=== PATIENT | female | born 1960 | race Caucasian/White ===

== ENCOUNTER 2017-07-10 18:25 | Emergency (ER) | payer BC ==
[~2017-07-10] VITALS: Ht 162.6 cm; Wt 80.5 kg
[~2017-07-10 18:25] MED LIST: ATORVASTATIN CA20 MG PO; LEVOTHYROXINE75 MCG PO; LISINOPRIL10 MG PO; METFORMIN HCL1000 MG PO
[2017-07-10] MEDS ORDERED: LEVOTHYROXINE100 MCG PO (19:47)
[2017-07-10] MEDS ORDERED: NAPROXEN375 MG PO (19:47)
[2017-07-10] MEDS ORDERED: METFORMIN HCL850 MG PO (19:47)
[2017-07-10] MEDS ORDERED: LISINOPRIL20 MG PO (19:48)
[2017-07-10] MEDS ORDERED: ZOFRAN ODT4 MG PO (23:44)
[2017-07-10] MEDS ORDERED: MACROBID 100 M100 MG PO (23:44)
--- NOTE | 2017-07-12 08:02 | EKG ---
[facility] [address] [facility] [place] [address] Signed Normal sinus rhythm Septal infarct , age undetermined Abnormal ECG No previous ECGs available Confirmed by PREETHI BARRAGAN MD ([id number]) on 07/12/2017 8:02:23 AM Electronically Signed By: PREETHI BARRAGAN MD 07/12/17 0802 PATIENT NAME: VIRGIL ADAMS Electrocardiogram DATE OF : 56 PHYSICIAN: PREETHI BARRAGAN MD REPORT #: [id number] REPORT IS CONFIDENTIAL AND NOT TO BE RELEASED WITHOUT AUTHORIZATION
== END 2017-07-11 00:06 | disposition home or self-care (01) ==
LOC: ED 18:25
DX: N39.0 Urinary tract infection, site not specified (principal); R53.1 Weakness; E03.9 Hypothyroidism, unspecified; E78.00 Pure hypercholesterolemia, unspecified; E11.9 Type 2 diabetes mellitus without complications; I10 Essential (primary) hypertension; F32.9 Major depressive disorder, single episode, unspecified; J45.909 Unspecified asthma, uncomplicated; Z87.891 Personal history of nicotine dependence; Z90.710 Acquired absence of both cervix and uterus; Z90.49 Acquired absence of other specified parts of digestive tract; Z79.84 Long term (current) use of oral hypoglycemic drugs; Z79.899 Other long term (current) drug therapy
CPT/HCPCS: 36415; 80053; 81001; 83690; 84484; 85025; 87088; 93005; 93010; 96360; 99284; J7030

== ENCOUNTER 2017-10-23 07:05 | Day surgery (SDC) | payer BC ==
[~2017-10-23] VITALS: Ht 162.6 cm; Wt 81.4 kg
[~2017-10-23 07:05] MED LIST changes: +CYMBALTA30 MG PO; +DOXYCYCLINE HY100 MG PO; +LEVOTHYROXINE100 MCG PO; +LISINOPRIL20 MG PO; +MACROBID 100 M100 MG PO; +METFORMIN HCL850 MG PO; +NAPROXEN375 MG PO; +ZOFRAN ODT4 MG PO
--- NOTE | 2017-10-23 09:27 | NUR ---
0845 AND 0925 COMFORTABLE IV PATENT.UPDATE GIVEN.
--- NOTE | 2017-10-23 12:05 | NUR ---
10/23/17 1205 Harini Weathers PT ARRIVED TO PACU. NO RESPONDING AT THIS TIME. OPA IN PLACE.
--- NOTE | 2017-10-23 13:23 | NUR ---
LE 1235: PT ARRIVES TO DS ROOM 3 VIA STRETCHER ALERT AND ORIENTED. PT DENIES ANY PAIN AT THIS TIME. PT PROVIDED WARM BLANKET AND WATER. FAMILY IN ROOM ON ARRIVAL. LE 1245: MED SCRIPT HARD COPY GIVEN TO PT . APPLE JUICE AND CRACKERS GIVEN PER PT REQUEST. BEDSIDE COMMODE PROVIDED, PT VOIDS 225 MLS RED URINE. DAUGHTER IN ROOM AT THIS TIME. CALL LIGHT WITHIN REACH. BEDSIDE COMMODE PROVIDED, PT STATES SHE FEELS "MORE COMFORTABLE SITTING ON COMMODE IN UPRIGHT POSITION." PT HAS NO FURTHER REQUESTS AT THIS TIME, CALL LIGHT WITHIN REACH, DAUGHTER IN PT ROOM.
--- NOTE | 2017-10-23 15:04 | NUR ---
CALLED DR. WOOD AND SPOKE TO VALARIE REGARDING PT'S PAIN AND SPASMS. VALARIE STATED SHE WOULD TALK TO DR. WOOD AND REPORT BACK TO DS UNIT. 1509: CALLED BACK, SEE NEW ORDERS.
--- NOTE | 2017-10-23 15:33 | NUR ---
LE 1500: PLACED WARM BLANKET ON PT'S RIGHT SIDE TO HELP WITH SPASM PAIN. PT PAINFUL, WITH TEARS. RICHARD PROVIDED. 1330: OFFERED PT SUPPOSITORY AND PAIN MEDICATIONS FROM NEW TELEPHONE ORDER. PT STATES "I THINK THE WARM BLANKET IS HELPING" AND DEFERS MEDICATION AT THIS TIME. ADVISED TO LET RN KNOW IF OR WHEN PT WOULD LIKE THE MEDICATIONS THEY ARE AVAILABLE. FAMILY IN ROOM WITH PT. CALL LIGHT WITHIN REACH.
--- NOTE | 2017-10-23 16:43 | NUR ---
PT EATING SANDWHICH AND SOUP, FAMILY IN ROOM. VS TO BE DONE AFTER MEAL. WARM BLANKET ON RIGHT SIDE. CALL LIGHT WITHIN REACH.
--- NOTE | 2017-10-23 17:15 | NUR ---
PT TOLERATED SANDWICH AND SOUP WELL, NO COMPLAINTS OF N/V. PT STATES SHE FEELS READY TO GO HOME NOW THAT HER PAIN/SPASMS ARE "MUCH BETTER." PT FAMILY IN [place] EATING DINNER, DC INSTRUCTIONS TO BE READ WHEN THEY ARE PRESENT IN ROOM. CALL LIGHT WITHIN REACH. WARM BLANKET ON PT RIGHT SIDE.
--- NOTE | 2017-10-23 17:46 | NUR ---
DC INSTRUCTIONS GIVEN IN THE PRESENCE OF PATIENT AND FAMILY. INSTRUCTIONS UNDERSTOOD AND ALL QUESTIONS ANSWERED. PT AMBULATES WELL TO BATHROOM BEFORE DC VIA WHEELCHAIR HOME WITH FAMILY.
--- NOTE | 2017-10-24 10:43 | OR ---
[facility] [address] [place], [place] [address] Signed DATE OF OPERATION: 10/23/2017 SURGEON: Christian Wood MD PREOPERATIVE DIAGNOSES: 1. Right renal calculus. 2. Intermittent right-sided flank pain. POSTOPERATIVE DIAGNOSES: 1. Right renal calculus. 2. Intermittent right-sided flank pain. NAMES OF PROCEDURES: 1. Diagnostic cystoscopy with right retrograde pyelogram. 2. Right flexible nephroureteroscopy with laser lithotripsy and basket extraction of stones. 3. Insertion of right indwelling ureteral stent. ANESTHESIA: General. ESTIMATED BLOOD LOSS: Minimal. COMPLICATIONS: None. SPECIMENS: Right renal calculi, sent to the lab for stone analysis. DRAINS: A 6 x 24 cm contour double-J ureteral stent inserted in the right ureter. INDICATIONS FOR PROCEDURE: Ms. Bryan is a very pleasant 57-year-old female who presented to my clinic upon referral from Don Bustos for intermittent right-sided flank pain. She had undergone a CT scan, which revealed no evidence of any ureteral calculi. However, it did reveal approximately 9 mm right renal calculus. After a discussion of the other potential causes of her pain, the patient has elected to undergo elective right renal stone extraction and hopes that this would improve her intermittent right-sided flank pain. Electronically Signed By: CHRISTIAN WOOD MD 10/24/17 1043 PATIENT NAME: VIRGIL BRYNA OPERATIVE REPORT DATE OF : 56 PHYSICIAN: CHRISTIAN WOOD MD REPORT #: [id number] REPORT IS CONFIDENTIAL AND NOT TO BE RELEASED WITHOUT AUTHORIZATION [facility] [address] [place], [place] [address] Signed OPERATIVE FINDINGS: 1. On cystoscopy, there was no evidence of any suspicious masses, lesions, or stones. Bilateral ureteral orifices are in their normal anatomic location. 2. Right retrograde pyelogram revealed adequate placement of the ureteral access sheath twice. The calices appeared normal without any evidence of blunting or dilation. Overall there was no evidence of any hydronephrosis or any indication of obstruction on the right side. 3. Right-sided nephroscopy revealed the presence of two large stones in the lower pole of the right kidney. Both stones were successfully extracted from the kidney via the ureteral scope and placed in a specimen cup to be sent to pathology for stone analysis. 4. A 6 x 24 cm contour double-J ureteral stent was inserted into the right ureter without difficulty. DESCRIPTION OF PROCEDURE: After informed consent was obtained, the patient was taken back to the operating room. She was transferred from the [facility] to the operating room table, where general anesthesia was induced. She was placed in dorsal lithotomy position and her genitalia prepped and draped in a sterile fashion. Using a 30-degree lens on a 22-Setswana introducer, rigid cystoscope was inserted through the urethra into her bladder under direct visualization. Panendoscopic views of the bladder were then obtained. Please see the above findings. Of note, prior to insertion of the cystoscope per urethra, appeared to be diminutive in nature. Her urethra was therefore dilated using straight sounds from 18-Setswana to 24-Setswana without difficulty. Once the cystoscope was in place, I inserted a Sensor wire into the right ureteral orifice and up into the right collecting system. Fluoroscopy confirmed adequate placement of the wire. Over the wire, a 13/15 ureteral access sheath was passed into the patient's right ureter under fluoroscopic guidance. Right retrograde pyelogram was performed, which revealed the aforementioned findings as well as confirmed placement of the sheath. The obturator was then removed leaving the sheath in place. A flexible ureteral scope was inserted into the patient's ureter and kidney via the sheath. Right flexible nephroureteroscopy was then performed. Please see above findings. All of the stone burden was located in the lower pole of the right kidney. I extracted each stone present there and brought it up to the mid pole where I then fragmented the stone using a holmium laser at 0.8 hertz and one joule setting. The stone is fragmented easily and then were extracted successfully using a Zero tip basket without complication. Towards the end of the case, there began to be a significant amount of bleeding in the right renal pelvis that was limiting my visualization. I am satisfied that I obtained at least 90% of the stone burden successfully, which the stone fragments will be sent to pathology for evaluation. Once I was satisfied that all the stones had been extracted, I inserted a Sensor wire through the ureteral access sheath and removed the ureteral access sheath fully intact. Over the wire, I passed a 6 x 24 cm contour double-J ureteral stent under direct Electronically Signed By: CHRISTIAN WOOD MD 10/24/17 1043 PATIENT NAME: VIRGIL BRYAN OPERATIVE REPORT DATE OF : 56 PHYSICIAN: CHRISTIAN WOOD MD REPORT #: [id number] REPORT IS CONFIDENTIAL AND NOT TO BE RELEASED WITHOUT AUTHORIZATION [address] [address] Signed visualization via the cystoscope. Once I pulled the wire, an adequate proximal coil was seen in the right renal pelvis along with an adequate distal coil within the bladder on cystoscopy. The procedure was then terminated. The patient tolerated the procedure out well without any complication. She will now be transferred to the postanesthesia care unit in stable condition. DISPOSITION: I discussed the details of today's procedure with the patient's family and answered all of her questions. She will be sent home later today with Percocet 5/325, dispensed #30 as needed for pain along with Bactrim for a total of seven days. She will be scheduled to return to clinic this October 27 to undergo cystoscopy with right ureteral stent extraction. Her stones will be sent for stone analysis today. MD AYANNA Brown/ABELL /[id number] Electronically Signed By: CHRISTIAN WOOD MD 10/24/17 1043 PATIENT NAME: VIRGIL BRYAN OPERATIVE REPORT DATE OF : 56 PHYSICIAN: CHRISTIAN WOOD MD REPORT #: [id number] REPORT IS CONFIDENTIAL AND NOT TO BE RELEASED WITHOUT AUTHORIZATION
== END 2017-10-23 17:40 | disposition home or self-care (01) ==
LOC: DS 07:05 → OPS 07:05 → DS 08:30 → OPS 08:30
PROVIDERS: Urology
PROC: 0TC38ZZ Extirpation of Matter from Right Kidney Pelvis, Via Natural or Artificial Opening Endoscopic (ICD-10-PCS; principal; 2017-10-23 08:30)
PROC: 0T768DZ Dilation of Right Ureter with Intraluminal Device, Via Natural or Artificial Opening Endoscopic (ICD-10-PCS; 2017-10-23 08:30)
DX: N20.0 Calculus of kidney (principal); E03.9 Hypothyroidism, unspecified; F32.9 Major depressive disorder, single episode, unspecified; J45.909 Unspecified asthma, uncomplicated; E11.9 Type 2 diabetes mellitus without complications; M19.90 Unspecified osteoarthritis, unspecified site; Z90.710 Acquired absence of both cervix and uterus; Z90.49 Acquired absence of other specified parts of digestive tract; Z79.84 Long term (current) use of oral hypoglycemic drugs; Z79.899 Other long term (current) drug therapy; Z87.891 Personal history of nicotine dependence
CPT/HCPCS: 00910; 74420; 82365; C2617; J0696; J1170; J2250; J2704; J3010; J7120; Q9967

== ENCOUNTER 2024-11-07 14:18 | Emergency (ER) | payer MEDICARE, OTHER ==
[~2024-11-07] VITALS: Ht 162.6 cm; Wt 99.1 kg
[2024-11-07] MEDS ORDERED: METOPROLOL TARTRATE 5 MG/5 ML VIAL IV ONE (15:30)
[2024-11-07 15:36] LABS: BASOPHILS 0.5 % (0-2); EOSINOPHILS 3.3 % (0-6); HEMATOCRIT 36.4 % (35.0-50.0); HEMOGLOBIN 12.3 g/dL (12.0-18.0); LYMPHOCYTES 18.1 % (24-44); MCHC 33.8 g/dl (30-36); MCV 82.8 fl (81-99); MONOCYTES 10.6 % (0-12); NEUTROPHILS 67.5 % (39-80); PLATELET COUNT 355 K/uL (140-440); RDW 15.1 (10.5-15.0)
[2024-11-07 16:04] LABS: ALBUMIN/GLOBULIN RATIO 0.56 (1.1-2.4); ANION GAP 14.5 (7-21); BILIRUBIN, TOTAL 0.5 ng/dL (0.2-1.0); BUN/CREATININE RATIO 16.3 (6.0-28.6); CALCIUM 9.9 mg/dL (8.5-10.1); CREATININE, SERUM 0.92 mg/dL (0.55-1.02); MAGNESIUM 1.8 mg/dL (1.8-2.4); POTASSIUM 3.5 mmol/L (3.5-5.1); PROTEIN, TOTAL 8.4 g/dL (6.4-8.2); TSH, 3RD GENERATION 5.484 uIU/mL (0.358-3.740)
[2024-11-07 16:06] LABS: AMPHETAMINES, URINE NEGATIVE (NEGATIVE); BARBITURATES, URINE NEGATIVE (NEGATIVE); BENZODIAZEPINE, URINE NEGATIVE (NEGATIVE); BUPRENORPHINE, URINE NEGATIVE (NEGATIVE); CANNABINOID, URINE NEGATIVE (NEGATIVE); COCAINE, URINE NEGATIVE (NEGATIVE); ECSTASY, URINE NEGATIVE (NEGATIVE); FENTANYL, URINE NEGATIVE (NEGATIVE); METHADONE, URINE NEGATIVE (NEGATIVE); OPIATES, URINE NEGATIVE (NEGATIVE); OXYCODONE, URINE NEGATIVE (NEGATIVE); PHENCYCLIDINE, URINE NEGATIVE (NEGATIVE)
[2024-11-07] MEDS ORDERED: ASPIRIN 81 MG CHEW PO ONE (18:15)
[2024-11-07] MEDS ORDERED: NITROGLYCERIN PACKET TOP ONE (18:15)
[2024-11-07 18:46] VITALS: BP 143/84
== END 2024-11-07 18:40 | disposition short-term general hospital (02) ==
LOC: ED 14:18
PROVIDERS: Internal Medicine
DX: I21.4 Non-ST elevation (NSTEMI) myocardial infarction (principal); I48.91 Unspecified atrial fibrillation; E11.9 Type 2 diabetes mellitus without complications; I10 Essential (primary) hypertension; E78.5 Hyperlipidemia, unspecified; E03.9 Hypothyroidism, unspecified; E78.00 Pure hypercholesterolemia, unspecified; J45.909 Unspecified asthma, uncomplicated; Z87.891 Personal history of nicotine dependence; Z79.890 Hormone replacement therapy; Z79.4 Long term (current) use of insulin; Z79.84 Long term (current) use of oral hypoglycemic drugs; Z79.899 Other long term (current) drug therapy
CPT/HCPCS: 36415; 71045; 80053; 80307; 83735; 83880; 84439; 84443; 84484; 85025; 93005; 93010; 96374; 99285-25; A9270

== ENCOUNTER 2025-05-17 16:56 | Emergency (ER) | payer MEDICARE, OTHER ==
[~2025-05-17] VITALS: Ht 162.6 cm; Wt 87.3 kg
[~2025-05-17 16:56] MED LIST changes: -ATORVASTATIN CA20 MG PO; +ATORVASTATIN CA40 MG PO; +GLIPIZIDE ER10 MG PO; +LEVOTHYROXINE137 MCG PO; -LISINOPRIL20 MG PO; +LISINOPRIL30 MG PO; +PIOGLITAZONE HC45 MG PO; +SEMGLEE (Y100 UNIT/2 SUB-Q; +ZYRTEC10 MG PO
[2025-05-17] MEDS ORDERED: NITROFURANTOIN100 M1 PO (17:20)
[2025-05-17] MEDS ORDERED: GLIPIZIDE5 MG PO (17:21)
[2025-05-17] MEDS ORDERED: MOUNJARO5 MG/0.5 M SQ (17:21)
[2025-05-17] MEDS ORDERED: CLOPIDOGREL75 MG (18:58)
[2025-05-17 19:03] LABS: KETONE, URINE TRACE (Negative); LEUK ESTERASE, URINE MODERATE (negative); NITRITE, URINE POSITIVE (negative)
[2025-05-17 19:16] LABS: BLOOD/HGB, URINE MODERATE (Negative)
[2025-05-17 19:26] LABS: BACTERIA, URINE 1+ /hpf (negative); CASTS, URINE HYALINE 1+ \\lpf; CRYSTALS, URINE NONE SEEN (0-1+); EPITHELIAL CELLS, URINE SQUAMOUS 1+ /lpf (0-1+)
[2025-05-17 19:29] LABS: REFLEX CULTURE, URINE Yes (No)
[2025-05-17 19:30] LABS: BASOPHILS 0.5 % (0.1-1.2); EOSINOPHILS 1.7 % (0.7-5.8); LYMPHOCYTES 21.3 % (19.3-51.7); MCH 28.0 PG (25.6-32.2); MCHC 32.2 g/dL (32.2-35.5); MCV 86.8 fL (79.4-94.8); MONOCYTES 8.8 % (4.7-12.5); NEUTROPHILS 67.4 % (34.0-71.1); RBC 4.47 M/uL (3.93-5.22)
[2025-05-17 19:40] LABS: ALT (SGPT) 21.0 U/L (14-59); AST (SGOT) 12.0 U/L (15-37); GLOMERULAR FILTRATION RATE,EST 37.0 mL/min (>60); PROTEIN, TOTAL 9.2 g/dL (6.4-8.2); UREA NITROGEN 53.0 mg/dL (7-18)
[2025-05-17] MEDS ORDERED: HYDROCODON-ACE1 EA10 PO (19:53)
[2025-05-17] MEDS ORDERED: CEPHALEXIN500 M1 PO (19:53)
[2025-05-17] MEDS ORDERED: HYDROCODONE BIT/ACETAMINOPHEN 5/325 MG 1 TAB HOME.PACK PO PRN (20:00)
[2025-05-17] MEDS ORDERED: CEPHALEXIN MONOHYDRATE 500 MG HOME.PACK PO ONE (20:00)
[2025-05-17 20:13] VITALS: BP 142/82
== END 2025-05-17 20:15 | disposition home or self-care (01) ==
LOC: ED 16:56
PROVIDERS: Emergency Medicine
DX: N39.0 Urinary tract infection, site not specified (principal); I10 Essential (primary) hypertension; E11.9 Type 2 diabetes mellitus without complications; E03.9 Hypothyroidism, unspecified; J45.909 Unspecified asthma, uncomplicated; Z87.891 Personal history of nicotine dependence; Z79.84 Long term (current) use of oral hypoglycemic drugs; Z79.4 Long term (current) use of insulin; Z79.890 Hormone replacement therapy; Z79.899 Other long term (current) drug therapy
CPT/HCPCS: 36415; 80053; 81001; 85025; 87088; 99283; A9270

== ENCOUNTER 2025-06-01 19:54 | Emergency (ER) | payer MEDICARE, OTHER ==
[~2025-06-01] VITALS: Ht 162.6 cm; Wt 86.1 kg
[~2025-06-01 19:54] MED LIST changes: +CEPHALEXIN500 M1 PO; +CLOPIDOGREL75 MG; +GLIPIZIDE5 MG PO; +HYDROCODON-ACE1 EA10 PO; +MOUNJARO5 MG/0.5 M SQ; +NITROFURANTOIN100 M1 PO
--- OUTSIDE RECORDS SUMMARY | 2025-06-01 19:58 | XMS ---
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 Jaki has no Care Guidelines for this patient. Chen VISIT COUNT (12 MO.) 3 [facility] TOTAL 3 NOTE: Visits indicate total known visits. ED/C VISIT TRACKING (12 MO.) 06/01/2025 19:54 [facility] [place] TYPE: Emergency COMPLAINT: - URINE ISSUE 05/17/2025 16:57 [facility] [place] TYPE: Emergency COMPLAINT: - PAINFUL URINATION DIAGNOSES: - Dysuria - Essential (primary) hypertension - Hormone replacement therapy - Hypothyroidism, unspecified - intermediate teacher (current) use of insulin - intermediate teacher (current) use of oral hypoglycemic drugs - Other long lines operator (current) drug therapy - Personal history of nicotine dependence - Type 2 diabetes mellitus without complications - Unspecified asthma, uncomplicated - Urinary tract infection, site not specified 11/07/2024 14:19 [facility] [place] TYPE: Emergency COMPLAINT: - WEAKNESS DIAGNOSES: - Essential (primary) hypertension - Hormone replacement therapy - Hyperlipidemia, unspecified - Hypothyroidism, unspecified - intermediate teacher (current) use of insulin - [facility] (current) use of oral hypoglycemic drugs - Non-ST elevation (NSTEMI) myocardial infarction - Other jail (current) drug therapy - Personal history of nicotine dependence - Pure hypercholesterolemia, unspecified - Type 2 diabetes mellitus without complications - Unspecified asthma, uncomplicated - Unspecified atrial fibrillation - Weakness INPATIENT VISIT TRACKING (12 MO.) [facility] DIAGNOSES: - Acute respiratory failure with hypoxia - Acute systolic (congestive) heart failure - Atherosclerotic heart disease of [place] coronary artery without angina pectoris - intermediate teacher (current) use of insulin - Myocardial infarction type 2 - Nonrheumatic mitral (valve) insufficiency - Other malaise - Paroxysmal atrial fibrillation - Type 2 diabetes mellitus without complications - Unspecified atrial fibrillation [email or web address]
[2025-06-01] MEDS ORDERED: SODIUM CHLORIDE 0.9% 1,000 ML IV ONE (20:15)
[2025-06-01] MEDS ORDERED: KETOROLAC TROMETHAMINE 15 MG/ML VIAL IV ONE (20:15)
[2025-06-01] MEDS ORDERED: HYDROmorphone HCL 1 MG/ML SYR IV ONE (20:15)
[2025-06-01 20:29] LABS: BASOPHILS 0.5 % (0.1-1.2); EOSINOPHILS 2.6 % (0.7-5.8); LYMPHOCYTES 23.3 % (19.3-51.7); MCH 28.1 PG (25.6-32.2); MCHC 33.2 g/dL (32.2-35.5); MCV 84.9 fL (79.4-94.8); MONOCYTES 11.2 % (4.7-12.5); NEUTROPHILS 62.1 % (34.0-71.1); RBC 4.30 M/uL (3.93-5.22)
[2025-06-01 20:33] LABS: BACTERIA, URINE 2+ /hpf (negative); CASTS, URINE NONE SEEN \\lpf; CRYSTALS, URINE NONE SEEN (0-1+); EPITHELIAL CELLS, URINE SQUAMOUS 1+ /lpf (0-1+); REFLEX CULTURE, URINE Yes (No)
[2025-06-01 20:45] LABS: ALT (SGPT) 17.0 U/L (14-59); AST (SGOT) 9.0 U/L (15-37); GLOMERULAR FILTRATION RATE,EST 40.0 mL/min (>60); PROTEIN, TOTAL 8.6 g/dL (6.4-8.2); UREA NITROGEN 40.0 mg/dL (7-18)
[2025-06-01] MEDS ORDERED: LIDOCAINE 2% VISCOUS 6 ML SYR TOP ONE (22:30)
[2025-06-01] MEDS ORDERED: ONDANSETRON ODT8 MG PO (22:33)
[2025-06-01] MEDS ORDERED: LINEZOLID600 MG PO ×2 (22:33)
[2025-06-01] MEDS ORDERED: PERCOCET 5-3251 EACH PO (22:33)
[2025-06-01] MEDS ORDERED: HYDROmorphone HCL 1 MG/ML SYR IV PRN (22:45)
[2025-06-01] MEDS ORDERED: LORazepam 2 MG/ML VIAL IV ONE (22:45)
[2025-06-01] MEDS ORDERED: LINEZOLID 600 MG TAB PO ONE (22:45)
[2025-06-01] MEDS ORDERED: ONDANSETRON 4 MG HOME.PACK SL ONE (22:45)
[2025-06-01] MEDS ORDERED: OXYCODONE/ACETAMINOPHEN 1 TAB HOME.PACK PO ONE (22:45)
[2025-06-01] MEDS ORDERED: LACTATED RINGER'S 1,000 ML IV ONE (23:45)
[2025-06-01] MEDS ORDERED: SODIUM CHLORIDE 0.9% 1,000 ML IV PRN (23:45)
[2025-06-01 23:57] LABS: BASOPHILS 0.5 % (0.1-1.2); EOSINOPHILS 2.1 % (0.7-5.8); LYMPHOCYTES 20.2 % (19.3-51.7); MCH 28.5 PG (25.6-32.2); MCHC 33.1 g/dL (32.2-35.5); MCV 85.9 fL (79.4-94.8); MONOCYTES 9.7 % (4.7-12.5); NEUTROPHILS 67.0 % (34.0-71.1); RBC 3.76 M/uL (3.93-5.22)
[2025-06-02] MEDS ORDERED: TRANEXAMIC ACID IN NACL,ISO-OS 1,000 MG/100 ML PIGGYBACK IV ONE (00:15)
[2025-06-02 02:33] VITALS: BP 106/49
[2025-06-02] MEDS ORDERED: ELIQUIS5 MG PO (15:09)
[2025-06-02] MEDS ORDERED: LINEZOLID600 MG PO (16:28)
--- NOTE | 2025-06-02 23:22 | EKG ---
[facility] [address] [place] [address] Signed Atrial fibrillation Low voltage QRS T wave abnormality, consider inferior ischemia Abnormal ECG When compared with ECG of 07-NOV-2024 14:35, Vent. rate has decreased BY [address] no longer depressed in Inferior leads Nonspecific T wave abnormality has replaced inverted T waves in Anterior leads Confirmed by Radha Lee MD () on 06/02/2025 11:22:16 PM Electronically Signed By: RADHA LEE MD 06/02/25 2322 PATIENT NAME: VIRGIL ADAMS Electrocardiogram DATE OF : 56 PHYSICIAN: RADHA LEE MD REPORT #: [id number] REPORT IS CONFIDENTIAL AND NOT TO BE RELEASED WITHOUT AUTHORIZATION
== END 2025-06-02 02:36 | disposition home or self-care (01) ==
LOC: ED 19:54
PROVIDERS: Family Medicine
DX: N30.91 Cystitis, unspecified with hematuria (principal); N20.0 Calculus of kidney; E03.9 Hypothyroidism, unspecified; E78.00 Pure hypercholesterolemia, unspecified; E11.9 Type 2 diabetes mellitus without complications; I10 Essential (primary) hypertension; J45.909 Unspecified asthma, uncomplicated; I25.2 Old myocardial infarction; Z87.891 Personal history of nicotine dependence; Z79.84 Long term (current) use of oral hypoglycemic drugs; Z79.02 Long term (current) use of antithrombotics/antiplatelets; Z79.4 Long term (current) use of insulin; Z79.890 Hormone replacement therapy; Z79.899 Other long term (current) drug therapy
CPT/HCPCS: 36415; 51702; 74178; 80053; 81001; 82010; 82803; 85025; 87088; 93005; 93010; 96374; 96375; 96376; 99284-25; A4311; A9270; J0696; J1171; J1885; J2060; J2405; J7030; Q9967

== ENCOUNTER 2025-06-02 14:11 | Emergency (ER) | payer MEDICARE, OTHER ==
[~2025-06-02] VITALS: Ht 162.6 cm; Wt 89.5 kg
[~2025-06-02 14:11] MED LIST changes: +LINEZOLID600 MG PO; +ONDANSETRON ODT8 MG PO; +PERCOCET 5-3251 EACH PO
--- OUTSIDE RECORDS SUMMARY | 2025-06-02 14:18 | XMS ---
PreManage Notification: VIRGIL ADAMS Security Scientific Director Events No recent Security Events currently on file CRITERIA MET - [facility] - 2 Visits in 30 Days CARE PROVIDERS There are no care providers on record at this time. Jaki has no Care Guidelines for this patient. [facility] MO[facility] NOTE: Visits indicate total known visits. ED/C VISIT TRACKING (12 MO.) 06/02/2025 14:12 [facility] [place] TYPE: Emergency COMPLAINT: - UNCONTROLLABLE SHAKING 06/01/2025 19:54 [facility] [place] TYPE: Emergency COMPLAINT: - URINE ISSUE 05/17/2025 16:57 [facility] [place] TYPE: Emergency COMPLAINT: - PAINFUL URINATION DIAGNOSES: - Dysuria - Essential (primary) hypertension - Hormone replacement therapy - Hypothyroidism, unspecified - division leader (current) use of insulin - division leader (current) use of oral hypoglycemic drugs - Other penitentiary (current) drug therapy - Personal history of nicotine dependence - Type 2 diabetes mellitus without complications - Unspecified asthma, uncomplicated - Urinary tract infection, site not specified 11/07/2024 14:19 [facility] [place] TYPE: Emergency COMPLAINT: - WEAKNESS DIAGNOSES: - Essential (primary) hypertension - Hormone replacement therapy - Hyperlipidemia, unspecified - Hypothyroidism, unspecified - division leader (current) use of insulin - skilled nursing (current) use of oral hypoglycemic drugs - Non-ST elevation (NSTEMI) myocardial infarction - Other penitentiary (current) drug therapy - Personal history of nicotine dependence - Pure hypercholesterolemia, unspecified - Type 2 diabetes mellitus without complications - Unspecified asthma, uncomplicated - Unspecified atrial fibrillation - Weakness INPATIENT VISIT TRACKING (12 MO.) 11/07/2024 [facility] DIAGNOSES: - Acute respiratory failure with hypoxia - Acute systolic (congestive) heart failure - Atherosclerotic heart disease of [place] coronary artery without angina pectoris - skilled nursing (current) use of insulin - Myocardial infarction type 2 - Nonrheumatic mitral (valve) insufficiency - Other malaise - Paroxysmal atrial fibrillation - Type 2 diabetes mellitus without complications - Unspecified atrial fibrillation [email or web address]
[2025-06-02] MEDS ORDERED: MORPHINE SULFATE 4 MG/ML VIAL IV PRN (14:45)
[2025-06-02] MEDS ORDERED: ELIQUIS5 MG PO (15:09)
[2025-06-02] MEDS ORDERED: PHENAZOPYRIDINE HCL 100 MG TAB PO ONE (15:15)
[2025-06-02] MEDS ORDERED: HYDROmorphone HCL 1 MG/ML SYR IV ONE (15:15)
[2025-06-02] MEDS ORDERED: LINEZOLID600 MG PO (16:28)
[2025-06-02] MEDS ORDERED: LINEZOLID 600 MG TAB PO ONE (16:38)
[2025-06-02 17:40] VITALS: BP 132/67
== END 2025-06-02 17:49 | disposition home or self-care (01) ==
LOC: ED 14:11
DX: N32.89 Other specified disorders of bladder (principal); N39.0 Urinary tract infection, site not specified; E11.9 Type 2 diabetes mellitus without complications; I10 Essential (primary) hypertension; E78.5 Hyperlipidemia, unspecified; I48.91 Unspecified atrial fibrillation; J45.909 Unspecified asthma, uncomplicated; I25.2 Old myocardial infarction; Z87.891 Personal history of nicotine dependence; Z79.4 Long term (current) use of insulin; Z79.84 Long term (current) use of oral hypoglycemic drugs; Z79.01 Long term (current) use of anticoagulants; Z79.890 Hormone replacement therapy; Z79.899 Other long term (current) drug therapy
CPT/HCPCS: 51700; 51798; 96374; 96375; 99284-25; J1171; J2270; J2405

== ENCOUNTER 2025-06-04 05:33 | Emergency (ER) | payer MEDICARE, OTHER ==
[~2025-06-04] VITALS: Ht 162.6 cm; Wt 88.0 kg
[~2025-06-04 05:33] MED LIST changes: +ELIQUIS5 MG PO
--- OUTSIDE RECORDS SUMMARY | 2025-06-04 05:36 | XMS ---
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 Jaki has no Care Guidelines for this patient. Chen VISIT COUNT (12 MO.) [address] [facility] [address] [facility] TOTAL 5 NOTE: Visits indicate total known visits. ED/C VISIT TRACKING (12 MO.) 06/04/2025 05:[address] [facility] [address] [facility] [place] TYPE: Emergency COMPLAINT: - CATH PROBLEM 06/02/2025 14:12 [facility] [place] TYPE: Emergency COMPLAINT: - UNCONTROLLABLE SHAKING DIAGNOSES: - Dysuria - Essential (primary) hypertension - Hormone replacement therapy - Hyperlipidemia, unspecified - terminologist (current) use of anticoagulants - terminologist (current) use of insulin - terminologist (current) use of oral hypoglycemic drugs - Old myocardial infarction - Other snf (current) drug therapy - Other specified disorders of bladder - Personal history of nicotine dependence - Type 2 diabetes mellitus without complications - Unspecified asthma, uncomplicated - Unspecified atrial fibrillation - Urinary tract infection, site not specified 06/01/2025 19:54 [facility] [place] TYPE: Emergency COMPLAINT: - URINE ISSUE DIAGNOSES: - Calculus of kidney - Cystitis, unspecified with hematuria - Essential (primary) hypertension - Hematuria, unspecified - Hormone replacement therapy - Hypothyroidism, unspecified - terminologist (current) use of antithrombotics/antiplatelets - long-term (current) use of insulin - long-term (current) use of oral hypoglycemic drugs - Old myocardial infarction - Other termite treater (current) drug therapy - Personal history of nicotine dependence - Pure hypercholesterolemia, unspecified - Type 2 diabetes mellitus without complications - Unspecified asthma, uncomplicated 05/17/2025 16:57 [facility] [place] TYPE: Emergency COMPLAINT: - PAINFUL URINATION DIAGNOSES: - Dysuria - Essential (primary) hypertension - Hormone replacement therapy - Hypothyroidism, unspecified - long-term (current) use of insulin - terminologist (current) use of oral hypoglycemic drugs - Other snf (current) drug therapy - Personal history of nicotine dependence - Type 2 diabetes mellitus without complications - Unspecified asthma, uncomplicated - Urinary tract infection, site not specified 11/07/2024 14:19 [facility] [place] TYPE: Emergency COMPLAINT: - WEAKNESS DIAGNOSES: - Essential (primary) hypertension - Hormone replacement therapy - Hyperlipidemia, unspecified - Hypothyroidism, unspecified - long-term (current) use of insulin - long-term (current) use of oral hypoglycemic drugs - Non-ST elevation (NSTEMI) myocardial infarction - Other snf (current) drug therapy - Personal history of nicotine dependence - Pure hypercholesterolemia, unspecified - Type 2 diabetes mellitus without complications - Unspecified asthma, uncomplicated - Unspecified atrial fibrillation - Weakness INPATIENT VISIT TRACKING (12 MO.) 11/07/2024 20:13 [facility] (Driss Naqvi) TYPE: Medical Surgical DIAGNOSES: - Acute respiratory failure with hypoxia - Acute systolic (congestive) heart failure - Atherosclerotic heart disease of [place] coronary artery without angina pectoris - terminologist (current) use of insulin - Myocardial infarction type 2 - Nonrheumatic mitral (valve) insufficiency - Other malaise - Paroxysmal atrial fibrillation - Type 2 diabetes mellitus without complications - Unspecified atrial fibrillation [email or web address]
[2025-06-04] MEDS ORDERED: LIDOCAINE 2% VISCOUS 6 ML SYR TOP ONE (06:00)
[2025-06-04 07:48] VITALS: BP 109/63
== END 2025-06-04 07:48 | disposition home or self-care (01) ==
LOC: ED 05:33
DX: T83.091A Other mechanical complication of indwelling urethral catheter, initial encounter (principal); N30.91 Cystitis, unspecified with hematuria; E03.9 Hypothyroidism, unspecified; E78.00 Pure hypercholesterolemia, unspecified; E11.9 Type 2 diabetes mellitus without complications; I10 Essential (primary) hypertension; J45.909 Unspecified asthma, uncomplicated; I25.2 Old myocardial infarction; Z87.891 Personal history of nicotine dependence; Z79.01 Long term (current) use of anticoagulants; Z79.890 Hormone replacement therapy; Z79.85 Long-term (current) use of injectable non-insulin antidiabetic drugs; Z79.84 Long term (current) use of oral hypoglycemic drugs; Z79.899 Other long term (current) drug therapy
CPT/HCPCS: 51700; 51798; 99283-25

== ENCOUNTER 2025-06-12 20:15 | Inpatient (IN) | payer MEDICARE, OTHER ==
[~2025-06-12] VITALS: Ht 162.6 cm; Wt 82.1 kg
[~2025-06-12 20:15] MED LIST changes: -MOUNJARO5 MG/0.5 M SQ; +MOUNJARO5 MG/0.5 M SUB-Q
--- OUTSIDE RECORDS SUMMARY | 2025-06-12 20:21 | XMS ---
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 - 2 Visits in 30 Days CARE PROVIDERS There are no care providers on record at this time. Jaki has no Care Guidelines for this patient. Chen VISIT COUNT (12 MO.) [address] [facility] TOTAL 6 NOTE: Visits indicate total known visits. ED/C VISIT TRACKING (12 MO.) 06/12/2025 20:[address] [facility] [place] TYPE: Emergency COMPLAINT: - WEAKNESS 06/04/2025 05:33 [facility] [place] TYPE: Emergency COMPLAINT: - CATHETER PROBLEM DIAGNOSES: - Cystitis, unspecified with hematuria - Essential (primary) hypertension - Hormone replacement therapy - Hypothyroidism, unspecified - Leakage of indwelling urethral catheter, initial encounter - salvage determiner (current) use of anticoagulants - salvage determiner (current) use of oral hypoglycemic drugs - Long-term (current) use of injectable non-insulin antidiabetic drugs - Old myocardial infarction - Other assisted (current) drug therapy - Other mechanical complication of indwelling urethral catheter, initial encounter - Personal history of nicotine dependence - Pure hypercholesterolemia, unspecified - Type 2 diabetes mellitus without complications - Unspecified asthma, uncomplicated 06/02/2025 14:12 [facility] [place] TYPE: Emergency COMPLAINT: - UNCONTROLLABLE SHAKING DIAGNOSES: - Dysuria - Essential (primary) hypertension - Hormone replacement therapy - Hyperlipidemia, unspecified - salvage determiner (current) use of anticoagulants - salvage determiner (current) use of insulin - salvage determiner (current) use of oral hypoglycemic drugs - Old myocardial infarction - Other termination clerk (current) drug therapy - Other specified disorders [...] replacement therapy - Hypothyroidism, unspecified - intermediate (current) use of antithrombotics/antiplatelets - salvage determiner (current) use of insulin - intermediate (current) use of oral hypoglycemic drugs - Old myocardial infarction - Other termination clerk (current) drug therapy - Personal history of nicotine dependence - Pure hypercholesterolemia, unspecified - Type 2 diabetes mellitus without complications - Unspecified asthma, uncomplicated 05/17/2025 16:57 [facility] [place] TYPE: Emergency COMPLAINT: - PAINFUL URINATION DIAGNOSES: - Dysuria - Essential (primary) hypertension - Hormone replacement therapy - Hypothyroidism, unspecified - intermediate (current) use of insulin - salvage determiner (current) use of oral hypoglycemic drugs - Other termination clerk (current) drug therapy - Personal history of nicotine dependence - Type 2 diabetes mellitus without complications - Unspecified asthma, uncomplicated - Urinary tract infection, site not specified 11/07/2024 14:19 [facility] [place] TYPE: Emergency COMPLAINT: - WEAKNESS DIAGNOSES: - Essential (primary) hypertension - Hormone replacement therapy - Hyperlipidemia, unspecified - Hypothyroidism, unspecified - intermediate (current) use of insulin - salvage determiner (current) use of oral hypoglycemic drugs - Non-ST elevation (NSTEMI) myocardial infarction - Other assisted (current) drug therapy - Personal history of nicotine dependence - Pure hypercholesterolemia, unspecified - Type 2 diabetes mellitus without complications - Unspecified asthma, uncomplicated - Unspecified atrial fibrillation - Weakness INPATIENT VISIT TRACKING (12 MO.) 11/07/2024 20:13 [facility] Dr[facility] (Driss Naqvi) TYPE: Medical Surgical DIAGNOSES: - Acute respiratory failure with hypoxia - Acute systolic (congestive) heart failure - Atherosclerotic heart disease of [place] coronary artery without angina pectoris - intermediate (current) use of insulin - Myocardial infarction type 2 - Nonrheumatic mitral (valve) insufficiency - Other malaise - Paroxysmal atrial fibrillation - Type 2 diabetes mellitus without complications - Unspecified atrial fibrillation [email or web address]
[2025-06-12] MEDS ORDERED: SODIUM CHLORIDE 0.9% 1,000 ML IV ONE (20:30)
[2025-06-12 20:35] LABS: BASOPHILS 0.2 % (0.1-1.2); EOSINOPHILS 0.2 % (0.7-5.8); LYMPHOCYTES 2.9 % (19.3-51.7); MCH 28.2 PG (25.6-32.2); MCHC 33.0 g/dL (32.2-35.5); MCV 85.6 fL (79.4-94.8); MONOCYTES 5.0 % (4.7-12.5); NEUTROPHILS 90.3 % (34.0-71.1); RBC 3.05 M/uL (3.93-5.22)
[2025-06-12 20:45] LABS: SMEAR REVIEW BLOOD SEE COMMENTS
[2025-06-12 20:46] LABS: INR 1.63 (0.80-1.30); PROTIME 18.3 Sec (11.2-14.2)
[2025-06-12 20:51] LABS: ALT (SGPT) 37.0 U/L (14-59); AST (SGOT) 20.0 U/L (15-37); GLOMERULAR FILTRATION RATE,EST 12.0 mL/min (>60); PROTEIN, TOTAL 7.5 g/dL (6.4-8.2); UREA NITROGEN 47.0 mg/dL (7-18)
[2025-06-12 20:59] LABS: LACTIC ACID, BLOOD 4.2 mmol/L (0.4-2.0)
[2025-06-12 21:12] LABS: BLOOD/HGB, URINE LARGE (Negative); KETONE, URINE SMALL (Negative); LEUK ESTERASE, URINE MODERATE (negative); NITRITE, URINE POSITIVE (negative)
[2025-06-12 21:17] LABS: EPITHELIAL CELLS, URINE SQUAMOUS 1+ /lpf (0-1+)
[2025-06-12 21:19] LABS: BACTERIA, URINE 3+ /hpf (negative); CASTS, URINE NONE SEEN \\lpf; CRYSTALS, URINE NONE SEEN (0-1+); REFLEX CULTURE, URINE Yes (No)
[2025-06-12 21:22] LABS: INFLUENZA B NAA NEGATIVE (NEGATIVE); RESPIRATORY SYNCYTIAL VIR NAA NEGATIVE (NEGATIVE)
[2025-06-12] MEDS ORDERED: SODIUM CHLORIDE 0.9% 1,000 ML IV PRN (21:30)
[2025-06-12] MEDS ORDERED: SODIUM CHLORIDE 0.9% 1,000 ML IV SCH (22:15)
[2025-06-12 22:26] LABS: GLOMERULAR FILTRATION RATE,EST 15.0 mL/min (>60); UREA NITROGEN 45.0 mg/dL (7-18)
--- NOTE | 2025-06-12 23:15 | NUR ---
DR ADDISON AT RN STATION, PER MD LACTIC REMAINS ELEVATED BUT IMPROVING. INSTRUCTED BY DR ADDISON TO REPEAT LACTIC Q2-[address] ADDISON ALSO PLANS TO ORDER A TYPE AND SCREEN AND CROSSMATCH. PER MD, NO CURRENT PLAN TO INFUSE BLOOD-H&H CURRENTLY WNL PER MD.
[2025-06-12] MEDS ORDERED: LACTATED RINGER'S 1,000 ML IV SCH (23:30)
[2025-06-12] MEDS ORDERED: ACETAMINOPHEN 325 MG TAB PO PRN (23:30)
[2025-06-12 23:52] VITALS: BP 124/79
[2025-06-13] VITALS (40 sets, daily range): BP systolic 66–135; BP diastolic 41–107
--- NOTE | 2025-06-13 00:15 | NUR ---
PATIENT ARRIVED TO THE UNIT. PATIENT IS ALERT AND FOLLOWS SOME COMMANDS BUT IS SLOW TO RESPOND AND CANNOT GIVE FULL HISTORY OR HOLD CONVERSATION. PATIENT'S GRANDDAUGHTER AT BEDSIDE. PATIENT RR 35-45. PATIENT REPORTS FEELING SOB. LUNG SOUNDS ARE CLEAR AND Sp02 95% ON ROOM AIR. 2L NC PLACED. PATIENT DENIED CHEST PAIN OR GI UPSET. PATIENT IS WARM TO TOUCH AND FLUSHED. AXILLARY TEMP ELEVATED. IV FLUIDS INFUSING PER ORDER; IV SITE WNL X2. ESCUDERO IN PLACE; OUTPUT IS CLOUDY LIGHT YELLOW/WHITE COLOR.
[2025-06-13 00:16] LABS: BASOPHILS 0.2 % (0.1-1.2); EOSINOPHILS 0 % (0.7-5.8); LYMPHOCYTES 4.9 % (19.3-51.7); MCH 28.5 PG (25.6-32.2); MCHC 32.7 g/dL (32.2-35.5); MCV 87.1 fL (79.4-94.8); MONOCYTES 1.7 % (4.7-12.5); NEUTROPHILS 92.1 % (34.0-71.1); RBC 3.02 M/uL (3.93-5.22)
--- NOTE | 2025-06-13 00:30 | NUR ---
PATIENT RESTLESS IN BED. REPORTS NEED TO HAVE BM. 2PA UP TO BSC; PATIENT IS ABLE TO STAND STRONG BUT IS UNCORRDINATED AND FOLLOWS DIRECTIONS POORLY. PATIENT PASSESS GAS BUT DOES NOT HAVE BM. BACK TO BED. HR ELEVATED TO 140'S WITH ACTIVITY. PATIENT CONTINUES TO HAVE RR 25-35 WITH LABORED BREATHING.
[2025-06-13 00:42] LABS: ABO A; RH NEGATIVE
--- NOTE | 2025-06-13 01:28 | NUR ---
DISCUSSED PATIENT'S FEVER, VITALS AND ELEVATED LACTIC WITH ORDERS TO REPEAT A BOLUS AND START NOREPI IF BP DOES NOT IMPROVE. REPEAT LACTIC IN 2 HOURS FROM FINISH OF BOLUS.
[2025-06-13] MEDS ORDERED: LACTATED RINGER'S 1,000 ML IV SCH (01:30)
[2025-06-13] MEDS ORDERED: NOREPINEPHRINE BITARTRATE 250 ML IV SCH (01:30)
[2025-06-13 01:36] LABS: ABO A; ANTIBODY SCREEN NEGATIVE; RH NEGATIVE
--- NOTE | 2025-06-13 03:00 | NUR ---
PATIENT RESTING WITH EYES CLOSED; WAKES WHEN RN IN ROOM. PATIENT DENIED ANY CONCERNS AND QUICKLY CLOSES HER EYES AGAIN. BREATHING IS LESS LABORED; RR 22. TOLERATING ROOM AIR. IV SITES WNL X2. IV FLUIDS AND NOREPI INFUSING. ESCUDERO EMPTIED; OUTPUT QS. URINE CONTINUES TO BE A CLOWDY YELLOW COLOR. CALL LIGHT IN REACH. BED ALARM ACTIVE.
--- NOTE | 2025-06-13 04:30 | NUR ---
PATIENT RESTING IN BED. VS STABLE. PATIENT DENIED ANY PAIN OR SOB. OUTPUT QS. IV FLUIDS AND NOREPI INFUSING PER ORDER. CALL LIGHT IN REACH.
[2025-06-13 05:38] LABS: GLOMERULAR FILTRATION RATE,EST 19.0 mL/min (>60); UREA NITROGEN 41.0 mg/dL (7-18)
[2025-06-13 05:41] LABS: MCH 28.2 PG (25.6-32.2); MCHC 32.6 g/dL (32.2-35.5); MCV 86.3 fL (79.4-94.8); RBC 2.77 M/uL (3.93-5.22)
[2025-06-13] MEDS ORDERED: CEFEPIME HCL 1 GM in DEXTROSE 5% 100 ML IV SCH (06:00)
--- NOTE | 2025-06-13 06:00 | NUR ---
PATIENT PROVIDED SOME TEA FOR A SORE THROAT. PATIENT AAOX4. TOLERATING ROOM AIR. DENIED PAIN OR GI UPSET. ESCUDERO DRAINING CLOUDY URINE. IV FLUIDS AND NOREPI INFUSING PER ORDER; SITE WNLS. PATIENT DENIED ANY NEEDS. CALL LIGHT IN REACH.
[2025-06-13 06:10] LABS: BANDS, MANUAL DIFF 22; BASOPHILS, MANUAL DIFF 2; LYMPHOCYTES, MANUAL DIFF 3; MONOCYTES, MANUAL DIFF 2; NEUTROPHILS, MANUAL DIFF 71
[2025-06-13] MEDS ORDERED: IBLOOD GLUCOSE TEST STRIP 1 EA TEST VI SCH (08:00)
[2025-06-13] MEDS ORDERED: INSULIN LISPRO 100 UNIT/ML ML SUB-Q SCH (08:00)
--- NOTE | 2025-06-13 08:17 | NUR ---
ECHO COMPLETE - PT AWAKES EASILY BUT DROWSY. ASKS FOR WARM BLANKET, NOTED TO BE SHIVERING, TEMP WNL, BLANKETS PROVIDED. NOREPI TITRATED TO 6MCG/KG/HR FROM 8. SPO2 STABLE ON ROOM AIR. ESCUDERO DRAINING CLOUDY YELLOW URINE. BED ALARM ON, CALL LIGHT IN REACH.
--- NOTE | 2025-06-13 08:45 | NUR ---
TYLENOL ADMINISTERED FOR 7/10 FLANK PAIN. PT DISORIENTED TO PLACE. ABD TENDER AND SLIGHTLY DISTENDED. PT COMPLAINS OF SORE THROAT WITH DRINKING WATER. DENIES BREAKFAST.
[2025-06-13] MEDS ORDERED: PANTOPRAZOLE SODIUM 40 MG TABEC PO SCH (09:00)
--- NOTE | 2025-06-13 09:26 | NUR ---
GRANDDAUGHTER UPDATED ON PT STATUS VIA TELEPHONE, ALL QUESTIONS ANSWERED.
[2025-06-13 09:56] LABS: ALT (SGPT) 32.0 U/L (14-59); AST (SGOT) 28.0 U/L (15-37); GLOMERULAR FILTRATION RATE,EST 22.0 mL/min (>60); PROTEIN, TOTAL 6.9 g/dL (6.4-8.2); UREA NITROGEN 40.0 mg/dL (7-18)
--- NOTE | 2025-06-13 10:22 | NUR ---
DR. ADDISON NOTIFIED OF PT INCREASE IN LACTIC FROM 0900 DRAW - ORDER TO REPEAT 3 HOURS.
--- NOTE | 2025-06-13 11:04 | NUR ---
DR. WOOD IN ROOM TO CONSULT. GRANDDAUGHTER PRESENT. PT ASSISTED UP TO BATHROOM TO HAVE BM. PT REPORTS SOME DIZZINESS WITH STANDING. 2 PERSON ASSIST FOR LINE/TUBE MANAGMENT. SMALL BROWN FORMED BM, WNL. LEVOPHED GTT AT 6MCG/KG/HR. PT WEAK BUT STEADY. BACK TO BED, ORIENTED, CALL LIGHT IN REACH.
[2025-06-13] MEDS ORDERED: MEROPENEM 1,000 MG in DEXTROSE 5% 100 ML IV SCH (11:25)
[2025-06-13] MEDS ORDERED: HYDROXYZINE HCL50 MG PO (11:36)
[2025-06-13] MEDS ORDERED: OXYCODONE HCL5 M3 PO (11:37)
[2025-06-13] MEDS ORDERED: OXYBUTYNIN CHLOR5 M1 PO (11:37)
[2025-06-13] MEDS ORDERED: LANTUS SOL100 UNIT/1 SUB-Q (11:42)
[2025-06-13] MEDS ORDERED: ENTRESTO 24 MG1 EACH PO (11:44)
[2025-06-13] MEDS ORDERED: METOPROLOL SUCC50 MG PO (11:45)
[2025-06-13] MEDS ORDERED: FUROSEMIDE20 MG PO (11:45)
[2025-06-13] MEDS ORDERED: SPIRONOLACTONE25 MG PO (11:46)
[2025-06-13] MEDS ORDERED: FAMOTIDINE20 MG PO (11:46)
[2025-06-13] MEDS ORDERED: PHARMACY RENAL DOSE ADJUSTMENT 1 DOSE MISC PO SCH (12:00)
--- NOTE | 2025-06-13 12:28 | NUR ---
PT RESTING IN BED WATCHING TV AND INTERMITANTLY NAPPING. REQUESTS PAIN MEDICATION FOR PERSISTANT FLANK PAIN GREATER THAN 5. MD NOTIFIED AND ORDER ENTERED FOR PERCOCET 5/325 MG Q6 PRN. ESCUDERO CONTINUES TO DRAIN CLOUDY PALE TO YELLOW URINE.
[2025-06-13] MEDS ORDERED: OXYCODONE/APAP 5/325 TAB PO PRN (12:30)
[2025-06-13 12:53] LABS: LACTIC ACID, BLOOD 3.6 mmol/L (0.4-2.0)
--- NOTE | 2025-06-13 13:19 | NUR ---
PRN PAIN MEDICATION ADMINISTERED FOR 7/10 FLANK PAIN. PT RESTING IN BED. NOT INTERESTED IN LUNCH, POOR APPETITE. CALL LIGHT IN REACH.
--- NOTE | 2025-06-13 14:00 | NUR ---
UR CLINICAL REVIEW: 2 MN GERRY, MEETS INPT FOR PYELONEPHRITIS IV FLUIDS, IV ANTIBIOTICS, HR 103-115, LACTIC ACID 4.2 THEN 3.3, CREAT 3.90, GFR 12, BUN 47, FLANK PAIN, ANEMIC WITH HGB 8.5 MEDICARE INPT 06/12/2025 @ 2329 ORDER MATCHES REG NO AUTH REQUIRED PER MEDICARE RULE DC HOME WHEN MEDICALLY READY
--- NOTE | 2025-06-13 15:05 | NUR ---
RN IN ROOM ROUNDING ON PT - PT C/O SEVERE NECK ACHE AND HEADACHE /. PT NOTED TO HAVE INCREASE PAIN AND STIFNESS WITH CHIN TO CHEST. MD NOTIFIED VIA TELEPHONE. LAB IN ROOM TO REPEAT LACTIC GRANDDAUGHTER PROVIDED TELEPHONE UPDATE.
--- NOTE | 2025-06-13 15:32 | NUR ---
HOSPITALIST NOTIFIED OF LACTIC REPEAT OF 3.0. DR. ADDISON AT BEDSIDE TO ASSESS NECK AND HEAD PAIN. PT ASSISTED UP BY OTHER RN TO BSC TO HAVE BM. BACK TO BED WITH INCREASED EXHAUSTION, 10/10 ALL OVER BODY PAIN AND RIGORS. AFEBRILE. HEAT PACK PROVIDED FOR BACK. CALL LIGHT IN REACH.
--- NOTE | 2025-06-13 17:33 | NUR ---
PT RESTING IN BED - WAKES EASILY. PT CONTINUES TO REPORT PAIN AND GENERALIZED DISCOMFORT, TYLENOL ADMINISTERED, TEMP 100.4. NOREPI REMAINS AT 2MCG/KG/HR WITH BORDERLINE MAP OF 65. MD UPDATED.
--- NOTE | 2025-06-13 18:27 | NUR ---
PT UP TO COMMODE TO HAVE BM. NOTED TO HAVE HARD TIME FINDING WORDS, INABILITY TO KEEP THOUGHT PROCESS. MINI NEURO EXAM NEGATIVE FOR ALL OTHER FINDINGS. TEMP REMAINS 100.5 DESPITE TYLENOL. PT BACK INTO BED, LAB IN ROOM TO DRAW.
[2025-06-13 18:43] LABS: GLOMERULAR FILTRATION RATE,EST 27.0 mL/min (>60); UREA NITROGEN 36.0 mg/dL (7-18)
[2025-06-13 18:54] LABS: LACTIC ACID, BLOOD 3.6 mmol/L (0.4-2.0)
[2025-06-13] MEDS ORDERED: LACTATED RINGER'S 1,000 ML IV ONE ×2 (19:00→22:45)
--- NOTE | 2025-06-13 19:05 | NUR ---
CALL PLACED MD TO UPDATE ON LABS - ORDERS TO BE ENTERED BY MD FOR BOLUS AND LAB REPEATS. PHONE UPDATE PROVIDED TO GRANDDAUGHTER.
--- NOTE | 2025-06-13 19:30 | NUR ---
SHIFT REPORT RECEIVED. PATIENT RESTING IN BED WATCHING TV. DENIED NEEDS OR CONCERNS. IV SITES WNL X2. IVF AND NOREPI INFUSING PER ORDER. VS STABLE. CALL LIGHT IN REACH.
--- NOTE | 2025-06-13 21:20 | NUR ---
PATIENT PROVIDED SCHEDULED MEDS PER ORDER. PATIENT ORAL TEMP IS 99.1 F AND PATIENT IS HAVING CHILLS AND RIGORS. PATIENT REPORTS SEVERE NECK PAIN AND IS OVERALL VERY STIFF. HR ELEVATED TO 130-140'S; SINUS TACH. BP ARE STABLE. RR INCREASING TO THE 30'S AND LABORED. LUNG SOUNDS ARE FINE CRACKLES IN RIGHT LOWER LOBE; CLEAR THROUGHOUT OTHER LOBES. ESCUDERO CARE DONE; URINE IS CLOUDY YELLOW.
--- NOTE | 2025-06-13 21:45 | NUR ---
DISCUSSED PATIENT'S CURRENT VS WITH CHANGED THE TYLENOL DOSE TO GIVE NOW. PRN PAIN MEDS CHANGED WELL.
[2025-06-13] MEDS ORDERED: ACETAMINOPHEN 500 MG TAB PO PRN (22:00)
[2025-06-13] MEDS ORDERED: MORPHINE SULFATE 4 MG/ML VIAL IV PRN (22:00)
--- NOTE | 2025-06-13 22:23 | NUR ---
PATIENT PROVIDED PRN TYLENOL AND PRN MORPHINE FOR FEVER AND 8/10 PAIN IN HER NECK. PATIENT REMAINS RESTLESS AND UNCOMFORTABLE. RR 30-35. TOLERATING ROOM AIR. AXILLARY TEMP IS ELEVATED 101.0 F. HR 130'S. BP IS STABLE AND NOREPI TITRATING DOWN. IV SITES WNL X2. FAMILY AT BEDSIDE.
[2025-06-13 22:27] LABS: GLOMERULAR FILTRATION RATE,EST 27.0 mL/min (>60); UREA NITROGEN 33.0 mg/dL (7-18)
--- NOTE | 2025-06-13 22:52 | NUR ---
REVIEWED PATIENT'S VS AND LABS WITH NEW ORDERS; SEE EMAR.
--- NOTE | 2025-06-13 23:24 | NUR ---
patient resting in bed; having sips of warm water. patient continues to have labored breathing but less than previous. rr 20's. hr improving to 120's. norepi is currently off. iv fluid bolus infusing per order; site wnl. long discussion with patient and her granddaughter about patient's current illness, labs, and treatment. all questions answered. encouraged rest for both family and the patient. call light in reach.
[2025-06-14] VITALS (33 sets, daily range): BP systolic 76–152; BP diastolic 48–137
[2025-06-14] MEDS ORDERED: METOPROLOL TARTRATE 5 MG/5 ML VIAL IV ONE ×2 (00:30→07:00)
--- NOTE | 2025-06-14 00:43 | NUR ---
0010 PATIENT'S HR SUDDENLY UP TO 160-180'S. APPEARS IRREGULAR. PATIENT IN BED AND REPORTING DISCOMFORT IN HER ESCUDERO. DENIED CHEST PAIN OR PALPITATIONS. ESCUDERO IRRIGATED. HR REMAINS ELEVATED. PATIENT HYPOTENSIVE. NOTIFIED. ORDERS FOR EKG AND LOPRESSOR RECEIVED. NOREPI RESTARTED; SEE FLOWSHEET. 0015 IN ROOM TO SEE PATIENT EKG SHOWS AFIB. LOPRESSOR GIVEN, PATIENT HR RESPONDED WELL. TITRATED NOREPI DUE TO HYPOTENSION. IV FLUID BOLUS STARTED. IV SITES WNL X2. PATIENT REMAINS ORIENTED X4 BUT DROWSY. FAMILY AT BEDSIDE. 0035 REVIEWED PLAN OF CARE AND ORDERS WITH MD. PLAN EXPLAINED AND ALL QUESTIONS ANSWERED FOR FAMILY.
[2025-06-14] MEDS ORDERED: LACTATED RINGER'S 1,000 ML IV ONE ×2 (00:45→10:30)
--- NOTE | 2025-06-14 01:44 | NUR ---
PATIENT RESTING WITH EYES CLOSED. PATIENT BACK IN SINUS RHYTHM; HR 106. MAP >65 WITH NOREPI INFUSING (SEE FLOW SHEET). IV SITES WNL X2.
[2025-06-14 02:15] LABS: GLOMERULAR FILTRATION RATE,EST 30.0 mL/min (>60); UREA NITROGEN 33.0 mg/dL (7-18)
[2025-06-14] MEDS ORDERED: LACTATED RINGER'S 1,000 ML IV SCH ×2 (03:00→23:15)
--- NOTE | 2025-06-14 03:03 | NUR ---
UPDATED ON CURRENT VS AND LABS. ORDERS FOR 4 HOUR FLUID BOLUS RECEIVED TO RUN CONCURRENT WITH REGULAR IV FLUIDS. SEE EMAR.
--- NOTE | 2025-06-14 04:14 | NUR ---
PATIENT RESTING IN BED. REPORTS FEELING SLIGHTLY BETTER OVERALL. VS STABLE. TOLERATING ROOM AIR. TITRATING DOWN ON NOREPI; SEE FLOWSHEET. HR 100'S; SINUS. IV FLUIDS AND BOLUS FLUIDS INFUSING PER ORDER; SITE WNL. PATIENT'S URINE OUTPUT HAS INCREASED AND URINE IS MORE CLEAR YELLOW. ENCOURAGED PATIENT TO REST. CALL LIGHT IN REACH.
--- NOTE | 2025-06-14 05:02 | NUR ---
ASSISTED PATIENT TO REPOSITION IN BED. WARM WATER PROVIDED PER REQUEST. PATIENT REPORTS FEELING TIRED BUT DENIED ANY PAIN AT THIS TIME. STATES "MY NECK IS JUST SORE BUT NOT HURTING". ICE PACK OFFERED. PATIENT'S BP HAS BEEN TRENDING UP; NOREPI TURNED OFF AT THIS TIME.
[2025-06-14 06:13] LABS: BASOPHILS 0.2 % (0.1-1.2); EOSINOPHILS 0.1 % (0.7-5.8); LYMPHOCYTES 5.2 % (19.3-51.7); MCH 28.6 PG (25.6-32.2); MCHC 33.0 g/dL (32.2-35.5); MCV 86.5 fL (79.4-94.8); MONOCYTES 5.8 % (4.7-12.5); NEUTROPHILS 86.9 % (34.0-71.1); RBC 2.66 M/uL (3.93-5.22)
[2025-06-14 06:30] LABS: ALT (SGPT) 95.0 U/L (14-59); AST (SGOT) 100.0 U/L (15-37); GLOMERULAR FILTRATION RATE,EST 31.0 mL/min (>60); PROTEIN, TOTAL 6.3 g/dL (6.4-8.2); UREA NITROGEN 31.0 mg/dL (7-18)
[2025-06-14] MEDS ORDERED: METOPROLOL TARTRATE 5 MG/5 ML VIAL IV SCH (06:30)
--- NOTE | 2025-06-14 07:40 | NUR ---
IN TO SEE PATIENT. HR IMPROVING. PATIENT REMAINS SOB. PLAN FOR RT TO EVAL AND GIVE NEB TREATMENT. RT CALLED.
[2025-06-14] MEDS ORDERED: ALBUTEROL SULFATE 0.083% 3 ML VIAL INH PRN (07:45)
--- NOTE | 2025-06-14 08:23 | NUR ---
NOREPI GTT RESTARTED INTO LEFT AC SITE Y SITED TO LR IVF. IV SITE FLUSHES WITHOUT DIFFICULTY. MAP <65 FOR LAST 45 MIN OF BP CHECKS. PT DROWSY BUT WAKES EASILY. SOB NOTED. PAIN RATING 7/10. PT PALE. TEMP 99.2 ORAL. URINE CLOUDY WITH SEDIMENT. GRANDDAUGHTER AT BEDSIDE SLEEPING. CALL LIGHT IN REACH.
[2025-06-14] MEDS ORDERED: VANCOMYCIN PER PHARMACY PROTOCOL IV SCH (09:00)
[2025-06-14] MEDS ORDERED: CEFEPIME HCL 2 GM in DEXTROSE 5% 100 ML IV SCH (09:00)
[2025-06-14] MEDS ORDERED: VANCOMYCIN HCL 2,000 MG in DEXTROSE 5% 500 ML IV ONE (10:00)
--- NOTE | 2025-06-14 10:22 | NUR ---
PT RESTING IN BED WATCHING TV ON TABLET, DROWSY. PT RATES PAIN 4/10 IN NECK, ICE PACK PROVIDED. NOREPI GTT AT 6MCG/KG/MIN TO SUSTAIN BP. TEMP DECREASED TO 98.4, PT COLOR IMPROVED.
--- NOTE | 2025-06-14 10:30 | NUR ---
MD NOTIFIED OF LACTIC RESULT OF 5.3 - UPDATE ON PT ASSESSMENT, NOREPI GTT RATE AND RHYTHM. MD TO ENTER ORDERS.
[2025-06-14 10:55] LABS: GLOMERULAR FILTRATION RATE,EST 34.0 mL/min (>60); UREA NITROGEN 33.0 mg/dL (7-18)
[2025-06-14 11:26] LABS: IS CROSSMATCH COMPATIBLE
--- NOTE | 2025-06-14 12:47 | NUR ---
LOPRESSOR HELD - PT IN NSR WITH RATE OF 82. BP STABLE, NOREPI TITRATATED OFF AT THIS TIME. BP 124/64.
--- NOTE | 2025-06-14 14:42 | NUR ---
PT ASSISTED UP TO BSC - MEDIUM LIQUID/SOFT BM. PT UP TO CHAIR AFTERWARDS. PT DENIES NEED FOR PAIN MEDICATION AT THIS TIME. REMAINS SOB BUT LUNGS CLEAR. BLOOD TRANSFUSION IN PROGRESS WITHOUT COMPLICATION. EATING BITES OF SANDWHICH FROM SUBWAY. NSR ON MONITOR, BP STABLE WITH NOREPI GTT OFF. GRANDDAUGHTER AT BEDSIDE.
[2025-06-14 14:54] LABS: GLOMERULAR FILTRATION RATE,EST 34.0 mL/min (>60); UREA NITROGEN 31.0 mg/dL (7-18)
[2025-06-14] MEDS ORDERED: SODIUM CHLORIDE 0.9% 1,000 ML IV SCH (15:30)
--- NOTE | 2025-06-14 15:34 | NUR ---
BLOOD ADMINISTRATION COMPLETE. MD AT BEDSIDE TO REVIEW RECENT BMP AND LACTIC RESULTS WITH PT AND GRANDDAUGHTER. PT C/O CHILLS, INCREASE SOB AND SHAKING, PREVIOUSLY EXPERIENCED AND NOT ASSOCIATED WITH BLOOD TRANSFUSION. PRN TYLENOL ADMINISTERED. VS STABLE. AFEBRILE, PROVIDED WARM BLANKET.
--- NOTE | 2025-06-14 15:45 | NUR ---
PT ASSISTED UP TO COMMODE TO HAVE BM - LIQUID BM CONTINUES. PT UNSTEADY ON FEET AND "EXHAUSTED". PHYSICAL EXCERTION OF PIVOT TRANSFER BACK AND FORTH NOTED TO CAUSE RHYTHM TO AFIB. PT FELT INCREASINGLY SOB AND TIRED DURING THIS RHYTHM CHANGE.
--- NOTE | 2025-06-14 17:08 | NUR ---
PT RESTING IN CHAIR, CHILLS IMPROVED, PT APPEARS SLIGHTLY MORE COMFORTABLE, TEMP INCREASING NOW AFTER TYLENOL. DENIES NEEDS AT THIS TIME. CALL LIGHT IN REACH, GRANDDAUGHTERS AT BEDSIDE.
--- NOTE | 2025-06-14 18:39 | NUR ---
PRN MORPHINE ADMINISTERED FOR 7/10 NECK PAIN, PT ALSO NOTED TO BE SOB. IV LOPRESSOR HELD AT THIS TIME, HR [address]. PT REMAINS AFEBRILE, STATES SHE FEELS HOT, FLUSHED IN CHEEKS. CALL LIGHT IN REACH, GRANDDAUGHTER AT BEDSIDE.
[2025-06-14 18:47] LABS: BASOPHILS 0.1 % (0.1-1.2); EOSINOPHILS 0.3 % (0.7-5.8); LYMPHOCYTES 4.5 % (19.3-51.7); MCH 28.2 PG (25.6-32.2); MCHC 33.1 g/dL (32.2-35.5); MCV 85.4 fL (79.4-94.8); MONOCYTES 7.2 % (4.7-12.5); NEUTROPHILS 87.5 % (34.0-71.1); RBC 2.87 M/uL (3.93-5.22)
[2025-06-14 18:54] LABS: GLOMERULAR FILTRATION RATE,EST 39.0 mL/min (>60); UREA NITROGEN 31.0 mg/dL (7-18)
--- NOTE | 2025-06-14 19:00 | NUR ---
SHIFT REPORT RECEIVED. PATIENT RESTING IN BED WITH FAMILY AT BEDSIDE. REPORTS FEELING WELL. DENIED NEEDS.
--- NOTE | 2025-06-14 20:00 | NUR ---
PATIENT APPEARS RESTFUL; EYE CLOSED. FAMILY REMIANS AT BEDSIDE. PATIENT'S BP ADEQUATE AND HR HAS INCREASED TO THE 120-130'S IN AFIB. SCHEDULED LOPRESSOR PROVIDED AT THIS TIME. IV SITES WNL X2. IV FLUIDS CONTINUE. CALL LIGHT IN REACH.
[2025-06-14] MEDS ORDERED: INSULIN GLARGINE-YFGN 100 UNIT/ML ML SUB-Q SCH (21:00)
--- NOTE | 2025-06-14 22:02 | NUR ---
PATIENT RECEIVED PRBC PER ORDER; NO REACTION AFTER 15 MINS. PATIENT VERBALIZED HER UNDERSTANDING OF REACTION RISK AND SYMPTOMS. PATIENT VS STABLE. CURRENTLY IN AFIB WITH RATE 100-115. TOLERATING ROOM AIR BUT DOES HAVE LABORED BREATHING. LUNG SOUNDS ARE CLEAR. IV FLUIDS AND ABX INFUSING; SITES WNL X2. ESCUDERO CARE DONE; PATIENT IS PAINFUL WHEN DAI AREA IS TOUCH OR ESCUDERO MANIPULATED AT ALL. URINE DRIANING FREELY. PATIENT DENIED PAIN OR GI UPSET. HAD SOME BROTH. FAMILY AT BEDSIDE.
--- NOTE | 2025-06-14 22:30 | NUR ---
LAB IN TO DRAW BLOOD. PATIENT HR ELEVATED AND PATIENT REPORTS INCREASED SOB. PATIENT RR 30 AND Sp02 89%. PLACED ON 2L NC. BLOOD INFUSION RATE DECREASED. PATIENT VS STABLE. NO RASH OR ITCHING. PATIENT STARTING TO SETTLE AFTER STAFF IN ROOM FOR A FEW MINS. PATIENT PROVIDED PRN MORPHINE. HR 100-120. RR 20'S. SpO2 99% ON 2L. PATIENT HAS COARSE UPPER AIRWAY SOUNDS WITH LABORED BREATHING. LUNG SOUNDS ARE CLEAR.
[2025-06-14 22:50] LABS: GLOMERULAR FILTRATION RATE,EST 41.0 mL/min (>60); UREA NITROGEN 33.0 mg/dL (7-18)
--- NOTE | 2025-06-14 23:10 | NUR ---
reviewed patient's labs with via phone. new orders placed by
[2025-06-15] VITALS (13 sets, daily range): BP systolic 92–141; BP diastolic 51–78
--- NOTE | 2025-06-15 00:30 | NUR ---
MEDS GIVEN PER ORDER. PATIENT WOKE WHILE RN IN ROOM. PATIENT REPORTS FEELING HER BREATHING IS OKAY RIGHT NOW. DENIED PAIN. VS STABLE. IV SITE IN LEFT AC IS LEAKING; IV DCd WNL.
--- NOTE | 2025-06-15 02:30 | NUR ---
PATIENT RESTING IN BED. REPORTS SLEEPING OFF AND ON. DENIED PAIN OR SOB. PATIENT'S HR HAS BEEN BETWEEN 115-150'S IN AFIB. AVERAGING 120'S. PATIENT DENIED FEELING PALPITATIONS OR CHEST PAIN. BP STABLE. IV FLUIDS PER ORDER. LAB IN ROOM FOR SCHEDULED LAB DRAW.
[2025-06-15 02:47] LABS: GLOMERULAR FILTRATION RATE,EST 42.0 mL/min (>60); UREA NITROGEN 34.0 mg/dL (7-18)
--- NOTE | 2025-06-15 04:00 | NUR ---
PATIENT APPEARS RESTFUL IN BED. HR REMAINS VARIABLE FROM 120-140'S AT REST. BP STABLE. URINE OUTPUT QS. IV FLUIDS PER ORDER; SITE WNL. ALLOWED PATIENT TO REST. CALL LIGHT IN REACH.
--- NOTE | 2025-06-15 05:10 | NUR ---
PATIENT RESTING IN BED WATCHING TV. PATIENT DENIED PAIN. APPEARS SLIGHLTY SOB BUT STATES "IT FEELS OKAY". VS STABLE. HR IS ELEVATED 120-140'S; PATIENT DENIED FEELING PALPITATIONS OR CHEST PAIN. FRESH WATER PROVIDED. CALL LIGHT IN REACH.
--- NOTE | 2025-06-15 05:45 | NUR ---
PATIENTS HR NOTED TO BE IN THE 170-180. THIS RN INTO ROOM AND PAITENT WAS NOTED TO BE GETTING OUT OF BED. PAITENT STATED "I NEED TO POOP". PATIENT ASSISTED TO THE BSC A 1PA. PATIENT ATTEMPTED TO HAVE BM AND WAS UNABLE TO. PATIENT ASSISTED BACK TO BED. PATIENT REPOSITIONED IN BED. PATIENTS HR ON THE MONITOR WAS NOTED TO BE 100-110 AND IS NOW SINUS TACH. PATIENT DENIES ANY PAIN OR SOB. PATIENTS RR IS NOTED TO BE INCREASED WITH ACTIVITY. PATIENT DENIES ANY FURTHER NEEDS. CALL LIGHT IN REACH.
--- NOTE | 2025-06-15 06:36 | NUR ---
PATIENT PROVIDED LOPRESSOR PER ORDER. HR 90'S; SINUS. BP ADEQUATE. PATIENT REPORTS FEELING "FINE". BREATHING APPEARS NON LABORED. PATIENT ORAL TEMP ELEVATED; PRN TYLENOL PROVIDED. NEWLY NOTED THAT PATIENT'S CHEEKS AND NOSE ARE PINK/RED. PATIENT DENIED ITCHING AND ITS NOT RAISED. NASAL CANNULA REMOVED INCASE IT MAY BE CAUSING IRRITATION. PATIENT IS TOLERATING ROOM AIR.
[2025-06-15 07:03] LABS: ALT (SGPT) 411.0 U/L (14-59); AST (SGOT) 277.0 U/L (15-37); GLOMERULAR FILTRATION RATE,EST 43.0 mL/min (>60); PROTEIN, TOTAL 6.2 g/dL (6.4-8.2); UREA NITROGEN 32.0 mg/dL (7-18)
[2025-06-15 07:10] LABS: MCH 29.0 PG (25.6-32.2); MCHC 34.0 g/dL (32.2-35.5); MCV 85.3 fL (79.4-94.8); RBC 3.34 M/uL (3.93-5.22)
[2025-06-15 07:28] LABS: BANDS, MANUAL DIFF 1; BASOPHILS, MANUAL DIFF 1; LYMPHOCYTES, MANUAL DIFF 6; MONOCYTES, MANUAL DIFF 8; NEUTROPHILS, MANUAL DIFF 84
--- NOTE | 2025-06-15 08:00 | NUR ---
PT WAKES EASILY FOR ASSESSMENT - STATES OVERALL SHE FEELS BETTER THIS AM. SP02 STABLE ON ROOM AIR, SOB IMPROVED WHILE IN SINUS RHYTHM. ESCUDERO DRAINING CLOUDY PALE YELLOW URINE WITH SEDIMENT. DENIES PAIN OR NEED FOR PAIN MEDS AT THIS TIME. AFEBRILE. CALL LIGHT IN REACH.
[2025-06-15] MEDS ORDERED: MAGNESIUM SULFATE 2 GM/50 ML BAG IV ONE (09:00)
[2025-06-15] MEDS ORDERED: LEVOTHYROXINE SODIUM 137 MCG TAB PO SCH (09:00)
[2025-06-15] MEDS ORDERED: METOPROLOL SUCCINATE 50 MG TABCR PO SCH (09:00)
[2025-06-15] MEDS ORDERED: FUROSEMIDE 20 MG TAB PO SCH (09:19)
[2025-06-15] MEDS ORDERED: SPIRONOLACTONE 25 MG TAB PO SCH (09:20)
[2025-06-15] MEDS ORDERED: METOPROLOL TARTRATE 5 MG/5 ML VIAL IV PRN (09:30)
--- NOTE | 2025-06-15 09:30 | NUR ---
RN IN ROOM ROUNDING WITH MD - CURRENT PLAN OF CARE AND LABS REVIEWED, ALL QUESTIONS ANSWERED. PT ASSISTED UP TO BATHROOM FOR BM. BED BATH WITH SOAPY RAGS COMPLETE, NEW GOWN AND LINEN. PT BACK TO CHAIR PER REQUEST. PT NOTED TO HAVE POOR ENDURANCE FOR SELF CARE/MOVEMENT, SEE NEED FOR INCREASED STRENGTH BEFORE DC HOME. GRANDDAUGHTERS AT BEDSIDE.
[2025-06-15] MEDS ORDERED: VANCOMYCIN HCL 1 GM in DEXTROSE 5% 250 ML IV SCH (10:00)
--- NOTE | 2025-06-15 11:46 | NUR ---
RN ROUNDING ON PT - RESTING IN CHAIR, DROWSY BUT WAKES EASILY. REQUESTS TYLENOL FOR NECK PAIN, APPROX 1 HOUR TOO SOON. ICE PACK PROVIDED PER REQUEST. PT DENIES OTHER NEEDS AT THIS TIME. CALL LIGHT IN REACH. GRANDDAUGHTER AT SIDE.
[2025-06-15] MEDS ORDERED: MICONAZOLE NITRATE 1 EA BTL TOP SCH (13:47)
--- NOTE | 2025-06-15 14:06 | NUR ---
PT RESTING IN CHAIR AFTER LUNCH. PT NOTED TO HAVE APPLE JUICE BROUGHT IN FROM GRANDDAUGHTER AFTER EXPLAINING EARLIER THAT CBG CHECKS HAVE BEEN HIGH, BLOOD SUGAR CONTROL ETC. RE-ITERATION OF BLOOD SUGAR R/T INFECTION AND BACTERIA GROWTH TO PT. PT STATES HER LAST AIC CHECK WAS "HIGH". PT DEMONSTRATES LACK OF UNDERSTANDING SUGAR FREE DRINKS FROM OTHERS, FRUIT VS JUICE CONCENTRATED ETC. PRN TYLENOL ADMINISTERED FOR NECK PAIN - REMAINS AFEBRILE. CALL LIGHT IN REACH.
[2025-06-15 14:35] LABS: GLOMERULAR FILTRATION RATE,EST 48.0 mL/min (>60); UREA NITROGEN 33.0 mg/dL (7-18)
--- NOTE | 2025-06-15 15:53 | NUR ---
PT UP TO BATHROOM WITHOUT CALLING FOR STAFF ASSISTANCE - NOTED ON MONITOR TO BE IN AFIB WITH RATES IN 140'S. RN IN ROOM TO ASSESS. PT NOTED TO BE SOB AND FLUSH IN FACE. BACK TO CHAIR AFTER UNMEASURED VOID OF URINE. PRN LOPRESSOR ADMINISTERED WELL MORPHINE FOR INCREASE PAIN. PT AND GRANDDAUGHTERS STATE UNDERSTANDING OF NEEDING TO CALL FOR STAFF BEFORE AMBULATING R/T HEART RATE AND RHYTHM. CALL LIGHT IN REACH.
--- NOTE | 2025-06-15 16:05 | EKG ---
[facility] [address] [place] [address] Signed Sinus tachycardia Low voltage QRS Septal infarct , age undetermined Abnormal ECG When compared with ECG of 01-JUN-2025 21:23, Sinus rhythm has replaced Atrial fibrillation Vent. rate has increased BY 39 BPM Septal infarct is now present T wave inversion no longer evident in Inferior leads T wave inversion no longer evident in Lateral leads Confirmed by Radha Lee MD () on 06/15/2025 4:05:22 PM Electronically Signed By: RADHA LEE MD 06/15/25 1605 PATIENT NAME: VIRGIL ADAMS Electrocardiogram DATE OF : 56 PHYSICIAN: RADHA LEE MD REPORT #: [id number] REPORT IS CONFIDENTIAL AND NOT TO BE RELEASED WITHOUT AUTHORIZATION
[2025-06-15] MEDS ORDERED: ADULT LOW DOSE81 MG PO (16:27)
[2025-06-15] MEDS ORDERED: VITAMIN D325 MC4 PO (16:27)
[2025-06-15] MEDS ORDERED: PLAVIX75 MG PO (16:27)
[2025-06-15] MEDS ORDERED: GEMTESA75 MG PO (16:28)
--- NOTE | 2025-06-15 16:28 | NUR ---
MED REC COMPLETE
--- NOTE | 2025-06-15 17:52 | NUR ---
PT RESTING IN BED SITTING UP TO EAT DINNER. BACK TO NSR WITH RATE OF 79 ON BARREL RAISER. CALL LIGHT IN REACH.
--- NOTE | 2025-06-15 18:05 | NUR ---
PT RESTING IN BED VISITING WITH FAMILY - PT ATE BITES OF MASH POTATOES AND GRAVY AND HALF BISQUIT. SP02 LOWER WHEN TALKING AND EATING. CALL LIGHT IN REACH.
[2025-06-15] MEDS ORDERED: CYCLOBENZAPRINE HCL 10 MG TAB PO SCH (21:56)
[2025-06-15] MEDS ORDERED: OXYCODONE HCL 5 MG TAB PO PRN (22:00)
--- NOTE | 2025-06-15 23:49 | NUR ---
PATIENT UP TO BSC. PATIENT HR INCREASED AND CONVERTED BACK INTO AFIB WITH HR UP TO 160'S. PATIENT RETURNED TO BED AND REPORTED SEVERE SOB. ATTEMPTS MADE FOR PATIENT TO PERFORM VALSALVA MANEUVER WITHOUT SUCESS. PATIENT PROVIDED PRN LOPRESSOR AND HR IMPROVED TO 110'S STILL AFIB. PATIENT STARTED TO RECOVER AND BREATHING LESS LABORED. PATIENT IN BED WITH HOB ELEVATED >45 DEGREES.
[2025-06-16] VITALS (17 sets, daily range): BP systolic 102–155; BP diastolic 62–98
--- NOTE | 2025-06-16 00:05 | NUR ---
PATIENT RATE INCREASED TO 150'S. SEVERAL MORE ATTEMPTS MADE FOR VALSALVA MANUEVERS WITH MODERATE EFFORT BY PATIENT. BP STABLE. APPEARS TO BE SINUS TACH ON MONITOR. NOTIFIED. PLAN FOR 2 ADDITIONAL DOSES OF LOPRESSOR.
[2025-06-16] MEDS ORDERED: METOPROLOL TARTRATE 5 MG/5 ML VIAL IV SCH (00:15)
--- NOTE | 2025-06-16 00:40 | NUR ---
PATIENT RECEIVED TOTAL OF 15 MG OF IV LOPRESSOR FOR HR OF 150 WITHOUT IMPROVEMENT IN RATE CONTROL. BP REMAINS STABLE. PATIENT REPORTS BEING SOB. DENIED CHEST PAIN OR PALPITATIONS. PATIENT ATTEMPTED TO VOID WITH PURE WIC AND WAS UNABLE. PATIENT UP TO BSC AGAIN; ABLE TO VOID. INSTRUCTED PATIENT ON VALSALVA MANUEVERS AGAIN AND PATIENT ATTEMPTED WITHOUT SUCESS. PATIENT BACK TO BED. HOB ELEVATED. TOLERATING ROOM AIR. RR 20-30.
[2025-06-16] MEDS ORDERED: ADENOSINE 3 MG/ML VIAL ONE (00:51)
--- NOTE | 2025-06-16 01:00 | NUR ---
PATIENT HR AGAIN ELEVATED. IN ROOM. 25MG DILTIAZEM GIVEN AND MORPHINE FOR SHORTNESS OF BREATH. PATIENT HR IMPROVED. PATIENT REMAINS SOB. CT ORDERED FOR PE STUDY. PATIENT AGREES. PATIENT IS WANTING TO GET UP TO THE BATHROOM; MD REQUEST PATIENT STAYS IN BED DUE TO DIFFICULTY CONTROLLING HEART RATE. PATIENT ATTEMPTS TO USE THE BEDPAN AND IS UNABLE TO. PREVIOUSLY ATTEMPTED TO USE THE PURE WIC AND UNABLE TO WELL.
[2025-06-16] MEDS ORDERED: ADENOSINE 3 MG/ML VIAL IV ONE (01:15)
[2025-06-16] MEDS ORDERED: MORPHINE SULFATE 4 MG/ML VIAL ONE (01:35)
[2025-06-16] MEDS ORDERED: MORPHINE SULFATE 4 MG/ML VIAL IV PRN (01:45)
--- NOTE | 2025-06-16 02:00 | NUR ---
IV SITE ESTABLISHED THAT IS APPROPRIATE FOR CT WITH CONTRAST. PATIENT TOLERATED WELL; MULTIPLE ATTEMPTS WERE REQUIRED. PATIENT AGAIN FEELS NEED TO VOID. FAILED ATTEMPTS TO USE THE BEDPAN. BLADDER SCAN DONE AND 250 MLS NOTED. PATIENT REMAINS IN A FLUTTER WITH RATE IN THE 70-100 RANGE.
--- NOTE | 2025-06-16 02:14 | NUR ---
PATIENT DOWN TO CT WITH AMERICANIZATION TEACHER AND FLOAT.
--- NOTE | 2025-06-16 02:30 | NUR ---
PATIENT UP TO BEDSIDE WITHOUT ASSIST; BED ALARM ALERTS STAFF. FLOAT RN ASSISTED PATIENT TO BSC. PATIENT EDUCATED ON RISK FROM ELEVATED HEART RATE AND ENCOURAGED TO STAY IN BED. PATIENT REFUSES TO USE BEDPAN OR PUREWIC. PATIENT AGITATED WITH FLOAT RN.
--- NOTE | 2025-06-16 02:40 | NUR ---
PT TAKEN TO CT PER DOCTOR ORDER, TOLERATED FAIR. PT BACK TO ROOM. INCONTINENT OF URINE. BEDDING CHANGED. WATER PROVIDED. PT STATES NO OTHER NEEDS. CALL LIGHT IN REACH.
--- NOTE | 2025-06-16 04:42 | NUR ---
PATIENT CALLED FOR ASSIST IN USING THE BATHROOM. PATIENT IS ADAMANT ABOUT NOT USING THE BEDPAN AND INSIST ON GOING TO THE BATHROOM TO VOID. PATIENT UP TO BATHROOM; DENIES FEELING SOB OR LIGHTHEADED. PATIENT'S BREATHING ON RETURN WAS LABORED BUT NOT BAD IT HAS BEEN PREVIOUSLY. PATIENT'S HR 150; A FLUTTER. PATIENT BACK IN BED; HOB ELEVATED. PATIENT'S HR IMPROVED TO 100-110 RANGE AFTER SEVERAL MINS.
[2025-06-16 05:29] LABS: BASOPHILS 0.3 % (0.1-1.2); EOSINOPHILS 1.3 % (0.7-5.8); LYMPHOCYTES 7.9 % (19.3-51.7); MCH 28.1 PG (25.6-32.2); MCHC 33.2 g/dL (32.2-35.5); MCV 84.6 fL (79.4-94.8); MONOCYTES 11.9 % (4.7-12.5); NEUTROPHILS 74.9 % (34.0-71.1); RBC 3.56 M/uL (3.93-5.22)
--- NOTE | 2025-06-16 05:30 | NUR ---
PATIENT UP TO THE BATHROOM AGAIN. PATIENT HR 150'S; A. FLUTTER. PATIENT SOB AND TIRED. DISCUSSED NEED FOR LASIX TODAY AND ENCOURAGED PATIENT TO ALLOW ESCUDERO PLACEMENT. ENCOURAGED PATIENT TO CONSIDER RISK AND SAVING HER ENERGY. PATIENT AGREES TO THINK ABOUT IT. PATIENT BACK IN BED. HOB ELEVATED. CALL LIGHT IN REACH.
[2025-06-16 05:57] LABS: ALT (SGPT) 377.0 U/L (14-59); AST (SGOT) 171.0 U/L (15-37); GLOMERULAR FILTRATION RATE,EST 55.0 mL/min (>60); PROTEIN, TOTAL 6.5 g/dL (6.4-8.2); UREA NITROGEN 32.0 mg/dL (7-18)
--- NOTE | 2025-06-16 06:18 | NUR ---
DISCUSSED PATIENT HR WITH . ORDERS RECEIVED FOR MEDS; SEE EMAR.
--- NOTE | 2025-06-16 06:38 | NUR ---
DISCUSSED OPTIONS FOR PATIENT TO USE THE PUREWIC OR ESCUDERO. DISCUSSED PROS/CONS OF BOTH WITH PATIENT. PATIENT AGREES TO USING THE PURE WIC; WHICH WAS PLACED. PATIENT PROVIDED CARDIZEM FOR ELEVATED HR AND MORPHINE FOR SOB. PROVIDED PATIENT WITH WARM WATER PER REQUEST. CALL LIGHT IN REACH.
[2025-06-16] MEDS ORDERED: MEROPENEM 1,000 MG in DEXTROSE 5% 100 ML IV SCH (07:51)
--- NOTE | 2025-06-16 08:00 | NUR ---
PT DROWSY AND FALLING ASLEEP DURING CONVERSATION - RATES PAIN 8/10 IN NECK AND BACK, REPOSISTIONED. PT NOTED TO BE IN AFLUTTER/AFIB ON MONITOR. INCREASED SOB AND ABD DISTENTION/WORK OF BREATHING WITH THIS RHYTHM. SP02 STABLE ON ROOM AIR, COARSE CRACKLES NOTED IN BASES. PUREWICK IN PLACE, PT NEEDS MORE EDUCATION ON THIS, RELUCTANT TO USE.
[2025-06-16] MEDS ORDERED: METOPROLOL SUCCINATE 100 MG TABCR PO SCH (09:00)
[2025-06-16] MEDS ORDERED: FUROSEMIDE 20 MG/2 ML VIAL IV ONE (09:15)
--- NOTE | 2025-06-16 10:25 | NUR ---
VISITED DURING SPIRITUAL CARE ROUNDS. PT APPEARED TO BE SLEEPING. DID NOT DISTURB. PROVIDED PRAYER.
--- NOTE | 2025-06-16 10:30 | NUR ---
PT RESTING IN BED WITH EYES CLOSED. REMAINS IN AFLUTTER ON MONITOR. BP STABLE. PT USING PUREWIK. IV SITES PATENT X2, ABX STARTED. GRANDDAUGHTER AT BEDSIDE AND UPDATED ON EVENTS OF NIGHT, CURRENT PLAN OF CARE.
--- NOTE | 2025-06-16 12:01 | NUR ---
PT RESTING IN BED, WAKES FOR CARES BUT DROWSY. HR IN 90'S AFIB/FLUTTER. PT RATES PAIN 7/10 IN BACK AND NECK, AFEBRILE. PUREWICK CANISTER EMPTIED.
[2025-06-16] MEDS ORDERED: FUROSEMIDE 40 MG/4 ML VIAL IV SCH (13:00)
--- NOTE | 2025-06-16 13:08 | NUR ---
INTO SEE PATIENT. PATIENT EATING LUNCH AND RESTING. PATIENT WOULD LIKE TO GO HOME WITH GRANDDAUGHTER AT TIME OF DISCHARGE. NO FUTHER CM NEEDS.
--- NOTE | 2025-06-16 13:48 | NUR ---
SPOKE WITH GRANDDAUGHTER DANIELA SHE STATED HER GRANDMOTHER HAS ORDERS FOR CARDIOPULMONARY REHAB. SHE SAID SHE DID NOT GO DUE TO IT BEING IN [place]. ORDERS WERE SENT TO [facility].
--- NOTE | 2025-06-16 14:00 | NUR ---
PURWIK CHANGED AND PT PROVIDED WITH CLEAN LINEN AND CHUX PAD UNDERNEATH. DAI CARE COMPLETE. PT CONTINUES TO SHOW POOR STAMINA SND ENDURANCE BECOMING SOB AND TIRED WITH SIMPLE ROLL IN BED, UNABLE TO BOOST SELF UP. SP02 REMAINS STABLE ON ROOM AIR - HR ELEVATED 110'S WITH MOVEMENT IN BED.
--- NOTE | 2025-06-16 15:44 | NUR ---
RN ROUNDING ON PT - RESTING IN BED WITH EYES CLOSED, VS STABLE ON MONITOR. PT WAKES WITH CARES, QUICKLY BACK TO SLEEP. BP CUFF REAPPLIED, PUREWIK CANISTER EMPTIED. CALL LIGHT AT SIDE.
--- NOTE | 2025-06-16 18:16 | NUR ---
PT RESTING IN BED, DROWSY, WAKES EASILY FOR CARES. REPOSISTIONED IN BED TO HELP BACK/SHOULDER PAIN PER REQUEST. PT DENIES NEED FOR MORPHINE AT THIS TIME, TOO SOON FOR TYLENOL. SON AT BEDSIDE, CALL LIGHT IN REACH.
--- NOTE | 2025-06-16 19:45 | NUR ---
PATIENT RESTING IN BED WITH EYES CLOSED, RR 19. NO SIGNS OF ACUTE DISTRESS NOTED. PATIENT HAS CALL LIGHT IN REACH.
--- NOTE | 2025-06-16 20:50 | NUR ---
PATIENT ASSESSMENT COMPLETE. PATIENT ASLEEP, BUT EASILY AWAKENS WITH VERBAL STIMULI. PATIENT REMAINS ON ROOM AIR, TOLERATING WELL. PATIENT HAS OCCASIONAL HARSH NONPRODUCTIVE COUGH. PATIENT HAS CORNET AT BEDSIDE. PATIENT REMAINS IN AFIB, HEART RATE 90-120'S. PATIENT HAS PUREWICK IN PLACE. PATIENT IV SITES WNL, AND SALINE LOCKED. PATIENT SON AT BEDSIDE, PROVIDED WITH WARM BLANKETS. NO NEEDS AT THIS TIME. PATIENT HAS CALL LIGHT IN REACH.
--- NOTE | 2025-06-16 23:15 | NUR ---
PATIENT RESTING IN BED WITH EYES CLOSED, RR 25. NO SIGNS OF ACUTE DISTRESS NOTED. PATIENT SON REMAINS ASLEEP AT BEDSIDE. PATIENT HAS CALL LIGHT IN REACH.
[2025-06-17] VITALS (16 sets, daily range): BP systolic 112–168; BP diastolic 67–98
--- NOTE | 2025-06-17 00:18 | NUR ---
IV PUMP ALARMING. pt AWAKE RESTING IN BED. IV ANTIBIOTIC COMPLETE. IV SL WNL. pt COMPLAINS OF LOWER BACK AND RIGHT SHOULDER PAIN, RATES PAIN 9/10. REPOSITIONED WITH PILLOW UNDER RIGHT SIDE. PRN PAIN MEDICATION ADMINISTERED. WARM BLANKET PROVIDED. PO SNACK PROVIDED WITH MEDICATION. CALL LIGHT IN REACH.
--- NOTE | 2025-06-17 01:53 | NUR ---
PATIENT RESTING WITH EYES CLOSED, RR 19. NO ACUTE DISTRESS NOTED. PATIENT REMAINS IN AFIB, HEART RATE 100-120'S. PATIENT ON ROOM AIR, SPO2 95%. PATIENT SON REMAINS AT BEDSIDE. NO NEEDS AT THIS TIME. CALL LIGHT IN REACH.
--- NOTE | 2025-06-17 03:15 | NUR ---
PATIENT RESTING IN BED WITH EYES CLOSED, RR 19. PATIENT REMAINS IN AFIB, HEART RATE 100-120'S. PATIENT REMAINS ON ROOM AIR, SPO2 95%. NO SIGNS OF ACUTE DISTRESS NOTED. PATIENT PURE WICK IN PLACE. SCD'S ON. IV SITES WNL. PATIENT HAS CALL LIGHT IN REACH.
[2025-06-17 05:26] LABS: MCH 28.9 PG (25.6-32.2); MCHC 34.2 g/dL (32.2-35.5); MCV 84.4 fL (79.4-94.8); RBC 3.46 M/uL (3.93-5.22)
[2025-06-17 05:39] LABS: BANDS, MANUAL DIFF 8; EOSINOPHILS, MANUAL DIFF 5; LYMPHOCYTES, MANUAL DIFF 24; MONOCYTES, MANUAL DIFF 9; NEUTROPHILS, MANUAL DIFF 54
[2025-06-17 05:43] LABS: ALT (SGPT) 274.0 U/L (14-59); AST (SGOT) 74.0 U/L (15-37); GLOMERULAR FILTRATION RATE,EST 66.0 mL/min (>60); PROTEIN, TOTAL 6.5 g/dL (6.4-8.2); UREA NITROGEN 21.0 mg/dL (7-18)
--- NOTE | 2025-06-17 06:15 | NUR ---
PRN PAIN MEDICATION GIVEN PER EMAR. PATIENT REPOSITIONED IN BED. PATIENT PROVIDED WITH FRESH ICE WATER PER REQUEST. NEW PUREWICK AND BRIEF PLACED. PATIENT HAS NO FURTHER NEEDS AT THIS TIME. CALL LIGHT IN REACH.
[2025-06-17] MEDS ORDERED: MAGNESIUM SULFATE 2 GM/50 ML BAG IV ONE (08:00)
[2025-06-17] MEDS ORDERED: POTASSIUM CHLORIDE 40 MEQ,LIDOCAINE HCL 1% 40 MG in DEXTROSE 5% 250 ML IV ONE (08:00)
--- NOTE | 2025-06-17 08:30 | NUR ---
PT REPOSISTIONED UP IN BED FOR BREAKFAST. PT REPORTS FEELING IMPROVED THIS AM, APPEARS MORE COMFORTABLE IN BED WITHOUT SOB. FAMILY AT BEDSIDE. FINE CRACKLES NOTED IN BASES, DIURESIS WITH LASIX CURRENT PLAN OF CARE. PUREWIK FUNCTIONAL WITH CLOUDY URINE IN CANISTER. PAIN REPORTED 6/10, PT DENIES NEEDING PAIN MEDICATION AT THIS TIME.
--- NOTE | 2025-06-17 09:00 | NUR ---
PT NOTED TO HAVE HR UP TO 179 ON MONITOR IN AFIB, DECREASED BUT STILL ABOVE 130. PRN LOPRESSOR DOSE PUSHED IV. PT WAS SITTING IN BED WITHOUT MOVEMENT WITH THIS INCREASE HR. PT EDUCATION PROVIDED TO PT AND FAMILY AT BEDSIDE. UPDATED AT RN STATION.
--- NOTE | 2025-06-17 10:55 | NUR ---
Spoke with pt and family. Pt wants to go home on dc. Family live with pt and will assist. Per 829 report pt is resistant to most all antibiotics. will work with the pharmacy. Pt will be here most likely 5 more days.
--- NOTE | 2025-06-17 11:24 | NUR ---
DR. LEE IN ROOM AT THIS TIME AND DISCUSSING UPDATES ON PATIENT'S BACTERIA PRESENT AND PLAN TO TREAT THIS WITH ABX. PT'S SON IN ROOM TO HEAR THIS UPDATE. LAB IN ROOM TO DRAW 3RD SET OF BLOOD CULTURES.
--- NOTE | 2025-06-17 11:44 | NUR ---
PT NOT AVAILABLE FOR VISIT. PROVIDED PRAYER.
--- NOTE | 2025-06-17 11:55 | NUR ---
Spoke with pt and family. Pt lives alone in independent housing at [facility]. Pt denies needs. She is agreeable to SNF placement, but wants to return to [facility] when she is stronger. PT working with this pt.
[2025-06-17] MEDS ORDERED: TOBRAMYCIN SULFATE XX ONE (12:00)
[2025-06-17] MEDS ORDERED: DEXTROSE 5% XX ONE (12:00)
--- NOTE | 2025-06-17 12:50 | NUR ---
PT BACK FROM CT - TOLERATED WITH MODERATE PAIN AND MAX HR OF 140'S, BP STABLE. PT QUITE ECHAUSTED FROM PIVOT TRANSFERS, SOB. PT EXPERIENCING SEVERE PAIN WITH URINATION. PRN PAIN MEDICATION ADMINISTERED. PT RESTING IN BED AND WISHES TO REST AT THIS TIME AND NOT EAT LUNCH. CALL LIGHT IN REACH.
--- NOTE | 2025-06-17 14:45 | NUR ---
PT RESTING IN BED DROWSY BUT WAKES EASILY FOR CARES. PT RATES PAIN 0/10. REMAINS IN AFIB, RATES 100'S - 110'S WITH RESTING IN BED. AFEBRILE. DENIES NEEDS AT THIS TIME. CALL LIGHT IN REACH.
--- NOTE | 2025-06-17 15:59 | NUR ---
PT C/O 05/04 NECK PAIN AND GENERALIZED UNWELL FEELING. AFEBRILE. PRN TYLENOL ADMINISTERED. DENIES FURTHER NEEDS, CALL LIGHT IN REACH.
--- NOTE | 2025-06-17 17:43 | NUR ---
PT REPOSISTIONED UP IN BED FOR DINNER - C/O PERSISTANT NECK PAIN DESPITE TYLENOL. MILD NAUSEA.
--- NOTE | 2025-06-17 19:35 | NUR ---
HANDOFF REPORT RECEIVED FROM DAYSHIFT RN. ALL QUESTIONS ANSWERED. PATIENT RESTING IN BED. NO EVIDENCE OF ACUTE DISTRESS NOTED. CALL LIGHT IN REACH.
--- NOTE | 2025-06-17 20:25 | NUR ---
PATIENT ASSESSMENT COMPLETE. PATIENT ALERT AND ORIENTED. PATIENT REMAINS IN AFIB, HR 90'S-110'S. PATIENT C/O MINIMAL SOB. LUNG SOUNDS CLEAR. RR EVEN AND UNLABORED. PATIENT C/O 7/10 BACK PAIN. PATIENT REPOSITIONED IN BED. PUREWICK AND BRIEF CHANGED. DAI CARE COMPLETE. PATIENT BG COMPLETE, 198. DESENEX POWDER PLACED UNDER BREASTS PER MD ORDER. SCDS ON. VITAL SIGNS STABLE. SON REMAINS AT BEDSIDE. CALL LIGHT IN REACH.
[2025-06-17] MEDS ORDERED: METOPROLOL SUCCINATE 100 MG TABCR PO SCH (21:00)
--- NOTE | 2025-06-17 21:02 | NUR ---
MEDICATIONS ADMINISTERED PER EMAR. VITAL SIGNS STABLE. PATIENT PROVIDED SNACK. PATIENTS SON REMAINS AT BEDSIDE. NO NEEDS IDENTIFIED AT THIS TIME. NO EVIDENCE OF ACUTE DISTRESS NOTED. CALL LIGHT IN REACH. BED ALARM ON.
--- NOTE | 2025-06-17 22:42 | NUR ---
IV ABX INFUSING PER EMAR. PATIENT RESTING IN BED W/ EYES CLOSED. RR 15. SPO2 95% ON RA. VITAL SIGNS STABLE, NO EVIDENCE OF ACUTE DISTRESS NOTED. SON REMAINS IN ROOM. CALL LIGHT IN REACH
--- NOTE | 2025-06-17 23:40 | NUR ---
ASSESSMENT COMPLETE. PATIENT AWAKE AND WATCHING TV. PATIENT STATES SHE FEELS "A LITTLE ANXIOUS" AT THIS TIME. PATIENT CONSOLABLE. TEA AND SNACKS PROVIDED. IV ABX INFUSING PER EMAR. PATIENT DENIES FURTHER NEEDS AT THIS TIME. BED ALARM ON, CALL LIGHT IN REACH
[2025-06-18] VITALS (18 sets, daily range): BP systolic 107–149; BP diastolic 47–98
--- NOTE | 2025-06-18 00:15 | NUR ---
SPOKE WITH DR LEE ABOUT PATIENT BEING ANXIOUS AND UNABLE TO SLEEP. NEW ORDERS ENTERED PER MD.
[2025-06-18] MEDS ORDERED: MELATONIN 3 MG TAB PO PRN (00:30)
[2025-06-18] MEDS ORDERED: LORazepam 0.5 MG TAB PO PRN (00:30)
--- NOTE | 2025-06-18 00:54 | NUR ---
PATIENT C/O 7/10 BACK PAIN. PRN PAIN MEDICATION ADMINISTERED PER EMAR. PATIENT C/O DIFFICULTY SLEEPING. PRN MELATONIN ADMINISTERED PER EMAR. PATIENT REPOSITIONED. PATIENT DENIES FURTHER NEEDS. NO EVIDENCE OF ACUTE DISTRESS NOTED. CALL LIGHT IN REACH, BED ALARM ON.
--- NOTE | 2025-06-18 02:15 | NUR ---
patient resting in bed w/ eyes closed. RR 16. no evidence of acute distress noted. call light in reach, bed alarm on
--- NOTE | 2025-06-18 03:50 | NUR ---
patient resting in bed. SPO2 94% on RA. no evidence of acute distress noted. bed alarm on, call light in reach
[2025-06-18 05:27] LABS: MCH 28.8 PG (25.6-32.2); MCHC 33.4 g/dL (32.2-35.5); MCV 86.0 fL (79.4-94.8); RBC 3.44 M/uL (3.93-5.22)
--- NOTE | 2025-06-18 05:33 | NUR ---
PATIENT ASSESSMENT COMPLETE. PATIENT REMAINS IN AFIB. HR 80'S-90'S. PATIENT DENIES NAUSEA OR FEELING SOB AT THIS TIME. PATIENT REMAINS ON RA, SPO2 93%. PATIENT PUREWICK IN PLACE. BRIEF CLEAN AND DRY. PATIENT RATES 5/10 AND STATES THAT IT IS A TOLERABLE LEVEL AT THIS TIME. DENIES NEED FOR PAIN MEDICATION OR REPOSITIONING. GENERALIZED EDEMA NOTED TO BLE. SCDS IN PLACE. PATIENT DROWSY BUT EASILY AWAKENS W/ VERBAL STIMULI. IV SITES INTACT AND WNL. PATIENT DENIES NEEDS AT THIS TIME. CALL LIGHT IN REACH, BED ALARM ON.
[2025-06-18 05:46] LABS: BANDS, MANUAL DIFF 3; BASOPHILS, MANUAL DIFF 1; EOSINOPHILS, MANUAL DIFF 3; LYMPHOCYTES, MANUAL DIFF 24; MONOCYTES, MANUAL DIFF 9; NEUTROPHILS, MANUAL DIFF 60
[2025-06-18 05:48] LABS: ALT (SGPT) 216.0 U/L (14-59); AST (SGOT) 51.0 U/L (15-37); GLOMERULAR FILTRATION RATE,EST 73.0 mL/min (>60); PHOSPHORUS, INORGANIC 3.0 mg/dL (2.5-4.9); PROTEIN, TOTAL 6.4 g/dL (6.4-8.2); UREA NITROGEN 18.0 mg/dL (7-18)
[2025-06-18] MEDS ORDERED: MEROPENEM 1,000 MG VIAL IV ONE (06:05)
--- NOTE | 2025-06-18 06:18 | NUR ---
IV ABX INFUSING PER EMAR. PATIENT RESTING IN BED. SPO2 97% ON RA. NO NEEDS IDENTIFIED. NO EVIDENCE OF ACUTE DISTRES NOTED. BED ALARM ON, CALL LIGHT IN REACH
--- NOTE | 2025-06-18 07:15 | NUR ---
REPORT FROM DAVIDSON QUINTANILLA, PT RESTING IN ROOM WITH SON AT SIDE, CALL LIGHT IN REACH.
[2025-06-18] MEDS ORDERED: MAGNESIUM SULFATE 2 GM/50 ML BAG IV SCH (07:45)
--- NOTE | 2025-06-18 09:47 | NUR ---
miko pitts called and contact precautions are needed now per health dept. charge sukh and dr finney notified at this time.
[2025-06-18] MEDS ORDERED: CEFTAZIDIME/AVIBACTAM 2.5 GM in SODIUM CHLORIDE 0.9% 100 ML IV SCH ×2 (10:00→14:00)
--- NOTE | 2025-06-18 11:10 | NUR ---
Spoke with Kathryn and son. Pt states she is feeling better today. Waiting for antibiotic which is susceptible to her bacteria to arrive. She complains of being very weak. We did discuss SNFs. Pt would like to go to [facility] dc if she meets criteria. She does look much better today. We discussed I will send the chart and she can decide when she is closer to dc. Per Hospitalist this am, pt will be here at least 6 more days.
--- NOTE | 2025-06-18 12:04 | NUR ---
pt sleeping - son in room at side, deferred bs check until she wakes to eat lunch. call light in reach.
--- NOTE | 2025-06-18 12:40 | NUR ---
amb pt to bathroom to void 200 ml of cloudy urine. unsteady standby assit - assisted pt to chair to sit for meal - bs [address] finney to room to discuss plan of care. contact precautions following.
--- NOTE | 2025-06-18 13:59 | NUR ---
PT NOT AVAILABLE FOR VISIT. PROVIDED PRAYER.
[2025-06-18] MEDS ORDERED: SODIUM CHLORIDE 0.9% IV SCH (14:00)
[2025-06-18] MEDS ORDERED: CEFTAZIDIME IV SCH (14:00)
[2025-06-18] MEDS ORDERED: AVIBACTAM IV SCH (14:00)
--- NOTE | 2025-06-18 15:23 | NUR ---
PT AMB TO BR TO VOID 300 ML URINE, CLOUDY - AMB BACK TO CHAIR AND RECLINED, WATER AND CALL LIGHT IN REACH FAMILY IN ROOM.
--- NOTE | 2025-06-18 15:34 | EKG ---
[facility] [address] [place] [address] Signed Atrial fibrillation with rapid ventricular response Low voltage QRS ST \T\ T wave abnormality, consider inferolateral ischemia Abnormal ECG When compared with ECG of 12-JUN-2025 20:41, Atrial fibrillation has replaced Sinus rhythm ST now depressed in Anterior leads T wave inversion now evident in Inferior leads T wave inversion now evident in Lateral leads Confirmed by Radha Lee MD () on 06/18/2025 3:34:18 PM Electronically Signed By: RADHA LEE MD 06/18/25 1534 PATIENT NAME: VIRGIL ADAMS Electrocardiogram DATE OF : 56 PHYSICIAN: RADHA LEE MD REPORT #: [id number] REPORT IS CONFIDENTIAL AND NOT TO BE RELEASED WITHOUT AUTHORIZATION
--- NOTE | 2025-06-18 15:37 | EKG ---
[facility] [address] [place] [address] Signed Atrial flutter with 2:1 AV conduction Low voltage QRS Septal infarct , age undetermined Lateral infarct , age undetermined Abnormal ECG When compared with ECG of 14-JUN-2025 00:21, Atrial flutter has replaced Atrial fibrillation Lateral infarct is now present ST no longer depressed in Lateral leads Confirmed by Radha Lee MD () on 06/18/2025 3:37:07 PM Electronically Signed By: RADHA LEE MD 06/18/25 1537 PATIENT NAME: VIRGIL ADAMS Electrocardiogram DATE OF : 56 PHYSICIAN: RADHA LEE MD REPORT #: [id number] REPORT IS CONFIDENTIAL AND NOT TO BE RELEASED WITHOUT AUTHORIZATION
--- NOTE | 2025-06-18 15:37 | EKG ---
[facility] [address] [place] [address] Signed Atrial flutter with variable AV block Low voltage QRS Septal infarct (cited on or before 16-JUN-2025) Lateral infarct (cited on or before 16-JUN-2025) ST \T\ T wave abnormality, consider anterior ischemia Abnormal ECG When compared with ECG of 16-JUN-2025 00:50, Vent. rate has decreased BY [address] elevation has replaced ST depression in Inferior leads Nonspecific T wave abnormality no longer evident in Inferior leads Inverted T waves have replaced nonspecific T wave abnormality in Anterior leads Confirmed by Radha Lee MD () on 06/18/2025 3:37:31 PM Electronically Signed By: RADHA LEE MD 06/18/25 1537 PATIENT NAME: VIRGIL ADAMS Electrocardiogram DATE OF : 56 PHYSICIAN: RADHA LEE MD REPORT #: [id number] REPORT IS CONFIDENTIAL AND NOT TO BE RELEASED WITHOUT AUTHORIZATION
--- NOTE | 2025-06-18 16:15 | NUR ---
PT CALLED AND ASSISTED FROM CHAIR TO BATHROOM AMBULATED WITH FWW, STANDBY ASSIST - PT HAD BM AND VOID 300 ML IV ABX FUSING WELL. CALL LIGHT IN REACH AND BACK IN CHAIR WITH WARM BLANKET.
--- NOTE | 2025-06-18 19:17 | NUR ---
report to police shift commander, pt resting in bed with call light.
--- NOTE | 2025-06-18 19:47 | NUR ---
HANDOFF REPORT RECEIVED FROM DAY SHIFT RN. ALL QUESTIONS ANSWERED. PATIENT RESTING IN BED. VITAL SIGNS STABLE. CALL LIGHT IN REACH. NO EVIDENCE OF ACUTE DISTRESS NOTED.
--- NOTE | 2025-06-18 20:30 | NUR ---
PATIENT UP TO BATHROOM SBA W/ FWW W/ ASSISTANCE FROM SOCORRO ULRICH. PATIENT BACK TO BED. PATIENT VOIDED 250 ML OF URINE. NO EVIDENCE OF ACUTE DISTRESS NOTED. VITAL SIGNS STABLE. CALL LIGHT IN REACH.
--- NOTE | 2025-06-18 20:39 | NUR ---
PATIENT UP TO THE BATHROOM WITHOUT CALLING. RN ASSISTED PATIENT TO UNTANGLE MONTIOR CORDS AND PROVIDED THE WALKER. PATIENT AMBULATED TO THE BATHROOM AND BACK TO BED WITHOUT FURTHER ASSIST. PATIENT'S SON IN ROOM. REMINDED PATIENT TO USE CALL LIGHT.
--- NOTE | 2025-06-18 21:08 | NUR ---
PATIENT ASSESSMENT COMPLETE. PATIENT DROWSY BUT EASILY AROUSABLE BY VERBAL STIMULI. PATIENT HR 88, NSR. PATIENT DENIES PAIN, NAUSEA, OR SOB. RR EVEN AND UNLABORED. SPO2 96% ON RA. BOWEL TONES HYPERACTIVE, ABDOMEN SOFT, MILD DISTENTION NOTED. BLE NOTED TO HAVE 1+ EDEMA. SCDS PLACED. LUNG SOUNDS COARSE THROUGHOUT. VITAL SIGNS STABLE. NO EVIDENCE OF ACUTE DISTRESS NOTED. PATIENT DENIES NEEDS AT THIS TIME. PATIENT UPDATED ON POC. CALL LIGHT IN REACH, BED ALARM ON.
--- NOTE | 2025-06-18 22:17 | NUR ---
PATIENT RESTING IN BED. VITAL SIGNS STABLE. NO EVIDENCE OF ACUTE DISTRESS NOTED. BED ALARM ON, CALL LIGHT IN REACH
--- NOTE | 2025-06-18 22:41 | NUR ---
PATIENT CALL LIGHT ANSWERED. PATIENT UP TO BATHROOM, SBA W/ FWW. PATIENT ABLE TO VOID 250 ML OF URINE. PATIENT BACK TO BED. SCDS ON. IV ABX INFUSING PER EMAR. PATIENT DENIES NEEDS AT THIS TIME. VITAL SIGNS STABLE. CALL LIGHT IN REACH. BED ALARM ON.
--- NOTE | 2025-06-18 23:19 | NUR ---
IV PUMP ALARMING. IV ALARM FIXED. IV SITE INTACT AND WNL. IV ABX INFUSING PER EMAR. PATIENT RESTING IN BED W/ EYES CLOSED. SPO2 93% ON RA. NO EVIDENCE OF ACUTE DISTRESS NOTED. BED ALARM ON, CALL LIGHT IN REACH
[2025-06-19] VITALS (19 sets, daily range): BP systolic 109–148; BP diastolic 43–92
--- NOTE | 2025-06-19 00:25 | NUR ---
PATIENT ASSESSMENT COMPLETE. PATIENT ALERT AND ORIENTED. PATIENT UP TO BSC. SBA TO BSC, PATIENT STEADY ON FEET. RR EVEN AND UNLABORED. LUNG SOUNDS COARS THROUGHOUT W/ CRACKLES NOTED IN THE R. LOWER LOBE. PATIENT BACK TO BED. NSR, HR 70'S-80'S. IV ABX COMPLETE PER EMAR. IV SITE INTACT AND WNL. VITAL SIGNS STABLE. NO NEEDS IDENTIFIED. BED ALARM ON, CALL LIGHT IN REACH.
--- NOTE | 2025-06-19 01:38 | NUR ---
patient resting in bed. rr even and unlabored. no evidence of acute distress noted. bed alarm on, call light in reach
--- NOTE | 2025-06-19 02:35 | NUR ---
PATIENT BED ALARM ALARMING. THIS RN AND DELANEY RN IN ROOM. PATIENT PARTIALLY OUT OF BED ATTEMPTING TO GET UP TO BR. PATIENT REDIRECTED AND EDUCATED ON SAFETY MEASURES. PATIENT ASSISTED UP TO [facility] SBA. PATIENT VOIDED 300 ML OF CLOUDY YELLOW, FOUL SMELLING URINE. NEW BRIEF PLACED. PATIENT BACK TO BED. PATIENT REPOSITIONED. PATIENT PROVIDED SNACK. SCDS IN PLACE. NO FURTHER NEEDS IDENTIFIED. BED ALARM ON, CALL LIGHT IN REACH
--- NOTE | 2025-06-19 04:21 | NUR ---
PATIENT RESTING IN BED. SPO2 94% ON RA. NO EVIDENCE OF ACUTE DISTRESS NOTED AT THIS TIME. CALL LIGHT IN REACH, BED ALARM ON.
--- NOTE | 2025-06-19 04:25 | NUR ---
PATIENT CALL LIGHT ANSWERED. PATIENT UP TO BSC. SBA. PATIENT VOIDED CLOUDY YELLOW URINE. PATIENT BACK TO BED. LUNG SOUNDS CLEAR IN THE UPPER LOBES AND DIMINISHED IN THE LOWER LOBES. PATIENT REPORTS SOB AFTER AMBULATION. PATIENT DENIES PAIN OR NAUSEA. IV SITE INTACT AND WNL. VITAL SIGNS STABLE. NO EVIDENCE OF ACUTE DISTRESS NOTED. DECAF TEA PROVIDED TO PATIENT PER REQUEST. CALL LIGHT IN REACH, BED ALARM ON.
[2025-06-19 05:33] LABS: MCH 28.9 PG (25.6-32.2); MCHC 33.6 g/dL (32.2-35.5); MCV 86.3 fL (79.4-94.8); RBC 3.42 M/uL (3.93-5.22)
[2025-06-19 05:57] LABS: ALT (SGPT) 174.0 U/L (14-59); AST (SGOT) 37.0 U/L (15-37); GLOMERULAR FILTRATION RATE,EST 71.0 mL/min (>60); PROTEIN, TOTAL 6.7 g/dL (6.4-8.2); UREA NITROGEN 18.0 mg/dL (7-18)
[2025-06-19 05:58] LABS: BANDS, MANUAL DIFF 3; EOSINOPHILS, MANUAL DIFF 2; LYMPHOCYTES, MANUAL DIFF 17; MONOCYTES, MANUAL DIFF 7; NEUTROPHILS, MANUAL DIFF 71
--- NOTE | 2025-06-19 06:12 | NUR ---
IV ABX INFUSING PER EMAR. PATIENT REPOSITIONED. VITAL SIGNS STABLE. NO NEEDS IDENTIFIED. NO EVIDENCE OF ACUTE DISTRESS NOTED. BED ALARM ON. CALL LIGHT IN REACH
--- NOTE | 2025-06-19 07:07 | NUR ---
bed alarm going off. patient attempting to get up to use br. patient assisted up to bsc. sba w/ fww. patient brief noted to be saturated. patient up to chair. hair brushed. patient updated on poc. linens changed. patient denies further needs. son at bedside. call light in reach. chair alarm in place
--- NOTE | 2025-06-19 07:10 | NUR ---
PT RESTING IN BED, HR REG, NO DISTRESS CALL LIGHT IN REACH - SON IN ROOM.
[2025-06-19] MEDS ORDERED: IBLOOD GLUCOSE TEST STRIP 1 EA TEST XX PRN (08:30)
[2025-06-19] MEDS ORDERED: DEXTROSE 50% 50 ML SYR IV PRN ×2 (08:30)
[2025-06-19] MEDS ORDERED: GLUCAGON,HUMAN RECOMBINANT 1 MG/ML VIAL SUB-Q PRN (08:30)
[2025-06-19] MEDS ORDERED: DEXTROSE 5% 1,000 ML IV PRN (08:30)
[2025-06-19] MEDS ORDERED: POTASSIUM CHLORIDE 10 MEQ TABCR PO ONE ×2 (09:00→21:00)
--- NOTE | 2025-06-19 09:59 | NUR ---
pt inc of urine up in chair - amb to br to void another 300 of cloudy urine then to shower chair - this rn gave shower, washed hair, venancio care. pt stood at sink with fww to brush teeth/hair and then back to chair with call light in reach, skin wnl, pt tollerated well but needed assistance for safety. family in room.
--- NOTE | 2025-06-19 10:45 | NUR ---
Spoke with Kathryn. She has also talked with Dr. Cleary. Pt will be here through next week for IV antibiotics. She cont. to want to go to [facility]. I updated I have sent her chart and spoke with Eladia at [facility]. Pt was discussed in 8:30 meeting and started Avycaz antibiotic.
--- NOTE | 2025-06-19 12:47 | NUR ---
PT ATE 100% OF LUNCH, AND AMBULATED WITH WALKER TO BATHROOM, STANDBY ASSIST. PT VOIDED 300ML AND THEN WALKED TO THE BED, AND REQUESTED TO NAP FOR A BIT. CALL LIGHT WITHIN REACH.
[2025-06-19] MEDS ORDERED: FUROSEMIDE 40 MG TAB PO SCH (13:00)
--- NOTE | 2025-06-19 14:33 | NUR ---
pt sleeping on right side, bed alarm on, resp 17m, hr 71. iv abx fusing r fore arm. call light in reach.
--- NOTE | 2025-06-19 15:50 | NUR ---
pt inc of lg amt of urine - amb to br to void and change. linen changed. iv right fa infilterated and stopped. call to dr. conklin to place US guide iv now, pt will be staying another 7 days for iv therapy abx at least - new cultures to be taken tomorrow and pending results abx may be 14 days. ok to have midline for future iv abx pending availability to place. Ellen here and able to place US iv only. discussed this above information with transmitter engineer in chargegallo mercedes, motor coach supervisor william and karin maguire. pt up in chair hr 100, resp 19 and call light in reach.
--- NOTE | 2025-06-19 16:30 | NUR ---
CALL TO DR JONH, HE ASKED ME TO CALL DR CHEUNG. UPDATE FROM JONATAN: THIS RN CALLED AND SPOKE WITH DR CHEUNG ON PHONE. PLEASE SCHEDULE PT TO HAVE CYSTOSCOPY AT BEDSIDE ON . . AFTER PT HAS HAD THE NEXT FEW DAYS OF THE PROPER ABX THAT SHE IS NOW ON. PT ALSO WENT IN TO AFIB WITH HR IN 120-150S AT THIS TIME, BP 143/72 (93) SEE NEW ORDER FOR DILT [address] JOHN. THIS RN RETURNED CALL TO DORA TO UPDATE OF UROLOGY PLAN AND UPDATED PT AND SON. MICHEL ABSTRACT SEARCHER IS AWARE OF ABOVE. 1700 PT IS IN CHAIR WITH FAMILY AND DINNER IS HERE, BS CHECKED AND PT IS ASYMPTOMATIC IN AFIB, HR 98-125 AT THIS TIME WAITING FOR MED.
--- NOTE | 2025-06-19 19:50 | NUR ---
RECEIVED REPORT FROM DAY SHIFT RN. PATIENT IS RESTING IN BED. PATIENT DENIES ANY NEEDS. CALL LIGHT IN REACH.
--- NOTE | 2025-06-19 20:51 | NUR ---
PATIENTS PM MEDS GIVEN PER ORDER. PATIENTS VITALS RECORDED. PATIENT ASSISTED TO THE BSC A 1PA. PATIENT ABLE TO VOID. PATIENT IS HBACK IN BED RESTING. PATIENT DENIES ANY PAIN OR NAUSEA. PATIENTS IOV FLUSHED AND SL PER ORDER. PATIENT IS ON RA. PATIENT IS AAOX4. PATIENT DENIES ANY FURTHER NEEDS. CALL LIGHT IN REACH. BED ALARM ON FOR SAFETY.
--- NOTE | 2025-06-19 20:58 | NUR ---
DISCUSSED PATIENT'S K+ LABS FROM THIS MORNING AND LASIX DOSEING WITH ONE TIME DOSE OF K+ TO BE GIVEN TONIGHT. RECHECK K+ AND MAG WITH AM LABS.
--- NOTE | 2025-06-19 21:57 | NUR ---
PATIENTS IV ABX INFUSING PER ORDER. PATIENT GIVEN ONE TIME DOSE 0F POTASSIUM PER ORDER. PATIENT REPORTS 5/10 PAIN IN HER RIGHT HIP AREA, PRN PAIN MEDICATION GIVEN PER ORDER. PATIENT ASSISTED TO REPOSITION TO LEFT SIDE. PATIENT DENIES ANY FURTHER NEEDS. CALL LIGHT IN REACH. BED ALARM ON FOR SAFETY.
[2025-06-20 00:10] VITALS: BP 112/56
--- NOTE | 2025-06-20 00:12 | NUR ---
PATIENT IS RESTING IN BED WITH EYES CLOSED, RR 18. NAD NOTED. CALL LIGHT IN REACH. BED ALARM ON FOR SAFETY. SON ASLEEP ON COUCH.
--- NOTE | 2025-06-20 00:33 | NUR ---
PATIENT ASSISTED TO THE BSC A 1PA. PATIENT ABLE TO VOID. PATIENT IS BACK IN BED RESTING. PATIENT DENIES ANY PAIN OR NAUSEA. PATIENT DENIES ANY FURTHER NEEDS. CALL LIGHT IN REACH. BED ALARM ON FOR SAFETY.
--- NOTE | 2025-06-20 02:27 | NUR ---
PATIENT IS RESTING IN BED WITH EYES CLOSED, RR 17. NAD NOTED. CALL LIGHT IN REACH. BED ALARM ON FOR SAFETY.
[2025-06-20 04:07] VITALS: BP 123/70
--- NOTE | 2025-06-20 04:09 | NUR ---
PATIENT IS UP TO [facility] A 1PA. PATIENT ABLE TO VOID. PATIENT IS BACK IN BED RESTING. PATIENT DENIES ANY PAIN OR NAUSEA. PATIENT DENIES ANY FURTHER NEEDS. CALL LIGHT IN REACH. BED ALARM ON FOR SAFETY.
[2025-06-20 05:30] LABS: BASOPHILS 0.6 % (0.1-1.2); EOSINOPHILS 2.7 % (0.7-5.8); LYMPHOCYTES 21.8 % (19.3-51.7); MCH 28.2 PG (25.6-32.2); MCHC 32.0 g/dL (32.2-35.5); MCV 87.9 fL (79.4-94.8); MONOCYTES 8.4 % (4.7-12.5); NEUTROPHILS 63.4 % (34.0-71.1); RBC 3.73 M/uL (3.93-5.22)
[2025-06-20 05:53] LABS: ALT (SGPT) 131.0 U/L (14-59); AST (SGOT) 25.0 U/L (15-37); GLOMERULAR FILTRATION RATE,EST 65.0 mL/min (>60); PROTEIN, TOTAL 6.9 g/dL (6.4-8.2); UREA NITROGEN 17.0 mg/dL (7-18)
--- NOTE | 2025-06-20 06:34 | NUR ---
patient up to [facility] to void. patient tolerates well. returned to bed. denied further needs.
--- NOTE | 2025-06-20 07:30 | NUR ---
report from cash surrender calculator, call light in reach - afib hr 85.
[2025-06-20 08:04] VITALS: BP 132/98
--- NOTE | 2025-06-20 09:59 | NUR ---
PT UP TO BSC FOR URGENT BM/VOID. BACK TO CHAIR WITH CALL LIGHT - DENIES NEEDS. CASING WORKER AWARE OF MD ORDER FOR MIDLINE TO BE PLACED FOR ABX.
--- NOTE | 2025-06-20 11:33 | NUR ---
PT NOT AVAILABLE FOR VISIT. PROVIDED PRAYER.
[2025-06-20 12:14] VITALS: BP 120/73
--- NOTE | 2025-06-20 12:19 | NUR ---
pt sitting in chair on room air eating meal. insulin given - pt with call light visiting with son, denies needs.
--- NOTE | 2025-06-20 13:00 | NUR ---
Spoke with Kathryn and son. Pt states she is feeling better each day. Cont. with IV antibiotics. She spoke with the this am and again was told she will not dc until mid to end of next week. Pt was given coloring sheets and markers yesterday. She denies further needs.
--- NOTE | 2025-06-20 15:56 | NUR ---
ted holder at bedside for midline iv placement - delay in iv abx.
--- NOTE | 2025-06-20 16:00 | NUR ---
MIDLINE PLACEMENT ORDER RECEIVED FOR MIDLINE PLACEMENT, PT CHART REVIEWED. DISCUSSED WITH PT, VERBAL CONSENT OBTAINED. ULTRASOUND PROBE AND TABLE CLEANSED. LEFT UPPER ARM VEINS IDENTIFIED AND ASSESSED WITH ULTRASOUND. LEFT BASILIC VEIN MOST APPROPRIATE FOR USE, MEASURED AND 18 G MIDLINE CATHETER TO OCCUPY 26% OF VEIN. VEIN IS APPROX 2 CM DEEP. SUPPLIES SET UP IN A STERILE FASHION, ARM PREPPED AND DRAPED. SITE INJECTED WITH LIDOCAINE 1%, VEIN ACCESSED WITH 18 G MIDLINE WITHOUT DIFFICULTY, GUIDE WIRE DEPLOYED WITHOUT RESISTANCE. CATHETER THREAD INTO VEIN, DARK RED NON PULSATILE BLOOD RETURNED, SALINE LOCK ATTACHED, WITH BLOOD RETURN AND FLUSHED WITH 10 ML NS. SITE SECURED AND DRESSED, LABELED APPROPRIATELY. ARM CIRC IS 36 CM JUST ABOVE THE BIOPATCH, PT TOLERATED WELL. EDUCATED ON LINE USE, FLUSHED AGAIN WITH 10 ML NS. REPORT TO Brandon CHRISTOPHER RN.
[2025-06-20 17:00] VITALS: BP 133/75
--- NOTE | 2025-06-20 17:04 | NUR ---
pt up to bsc to void then to chair for dinner - bs high insulin given. denies pain or discomfort. call light in reach.
[2025-06-20 19:50] VITALS: BP 133/75
[2025-06-20] MEDS ORDERED: SALINE LOCK FLUSH 5 ML SYR IV SCH (21:00)
--- NOTE | 2025-06-20 21:00 | NUR ---
PATIENT RESTING IN BED, SHE IS ALERT TO NAME, DISCUSSED HS MEDICATION PASS AND PLAN OF CARE FOR TONIGHT, ASSESSMENT COMPLETE. NO REQUESTS OR CONCERNS AT THIS TIME. PROVIDED SON WITH PILLOW AND BLANKETS HE PLANS TO STAY OVERNIGHT.
--- NOTE | 2025-06-20 21:59 | NUR ---
REPORT TO AUGUST Palacio RN FOR TRANSFER TO MED/SURG.
--- NOTE | 2025-06-20 22:40 | NUR ---
RECEIVED REPORT FROM SUN QUINTANILLA. PATIENT MOVED FROM CCU 126 TO ROOM 114 ON MEDICATL FLOOR. PATIENTS IV ABX INFUSING PER ORDER. PATIENT REPORTS A HEADACHE, PRN TYLENOL GIVEN PER ORDER. PATIENT ORIENTED TO ROOM AND UPDATED ON PLN OF CARE. PATIENT AND PATIENTS SON DENY ANY FURTHER NEEDS AT THIS TIME. CALL LIGHT IN REACH.
--- NOTE | 2025-06-20 23:19 | NUR ---
I ANWSERED A CALL LIGHT FOR THIS PATIENT WHO NEEDED TO USE THE BATHROOM. PATIENT WAS VERY INDEPENDENT AND AMB WELL. PATIENT WAS PUT BACK IN BED AND HAD NO FURTHER NEEDS. CALL LIGHT WITHIN REACH.
[2025-06-21] VITALS (10 sets, daily range): BP systolic 111–130; BP diastolic 51–76
--- NOTE | 2025-06-21 00:41 | NUR ---
PATIENTS ABX COMPLETED INFUSING. PATIENTS MIDLINE IS NOW SL. PATIENT DENIES ANY NEEDS. CALL LIGHT IN REACH.
--- NOTE | 2025-06-21 02:12 | NUR ---
PATIENT IS RESTING IN BED WITH EYES CLOSED, RR 16. NAD NOTED. CALL LIGHT IN REACH.
--- NOTE | 2025-06-21 04:00 | NUR ---
PATIENT IS RESTING IN BED WITH EYES CLOSED, RR 15. NAD NOTED. CALL LIGHT IN REACH.
[2025-06-21 05:35] LABS: BASOPHILS 0.5 % (0.1-1.2); EOSINOPHILS 2.1 % (0.7-5.8); LYMPHOCYTES 20.1 % (19.3-51.7); MCH 28.2 PG (25.6-32.2); MCHC 31.9 g/dL (32.2-35.5); MCV 88.3 fL (79.4-94.8); MONOCYTES 8.4 % (4.7-12.5); NEUTROPHILS 67.7 % (34.0-71.1); RBC 4.01 M/uL (3.93-5.22)
--- NOTE | 2025-06-21 05:35 | NUR ---
PATIENTS BLOOD DRAWN FROM MIDLINE PER PROTOCOL AND SNET TO LAB. PATIENTS VITALS TAKEN AND RECORDED. INTAKE AND OUTPUT RECORDED. FRESH ICE WATER PROVIDED. PATIENT DENIES ANY PAIN OR NAUSEA. PATIENT DENIES ANY NEEDS. IV ABX INFUSING PER ORDER. CALL LIGHT IN REACH.
[2025-06-21 06:08] LABS: ALT (SGPT) 103.0 U/L (14-59); AST (SGOT) 21.0 U/L (15-37); GLOMERULAR FILTRATION RATE,EST 59.0 mL/min (>60); PROTEIN, TOTAL 7.6 g/dL (6.4-8.2); UREA NITROGEN 19.0 mg/dL (7-18)
--- NOTE | 2025-06-21 06:10 | NUR ---
PATIENT IS RESTIN GIN BED WITH EYES CLOSED, RR 15. NAD NOTED. CALL LIGHT IN REACH. IV INFUSING PER ORDER.
--- NOTE | 2025-06-21 09:22 | NUR ---
AM ASSESSMENT COMPLETE - PT RESTING IN BED AFTER BREAKFAST. PT DENIES COMPLAINTS AT THIS TIME, STATES SHE FEELS BETTER OVERALL. CALL LIGHT IN REACH.
--- NOTE | 2025-06-21 11:40 | NUR ---
PT RESTING, APPEARS COMFORTABLE
--- NOTE | 2025-06-21 13:15 | NUR ---
RECIEVED HAND OFF REPORT FROM SOCORRO SAUNDERS
--- NOTE | 2025-06-21 13:25 | NUR ---
PT IS AWAKE IN BED, DENIES NEEDS. CALL LIGHT IN REACH.
--- NOTE | 2025-06-21 13:55 | NUR ---
IN ROOM TO GIVE MEDICATIONS. PT IS IN SHOWER. NO NEEDS AT THIS TIME.
--- NOTE | 2025-06-21 17:21 | NUR ---
PT IN BED FROM BATHROOM. DENIES NEEDS. CALL LIGHT IN REACH.
--- NOTE | 2025-06-21 19:17 | NUR ---
REPORT RECIEVED FROM [employer]. PATIENT RESTING IN BED WITH HOB ELEVATED. PATIENT IS WITHOUT ANY NEEDS AT THIS TIME. CALL LIGHT AND PERSONAL BELONGINGS ARE WITHIN REACH.
--- NOTE | 2025-06-21 20:24 | NUR ---
PATIENT RESTING IN BED WITH HOB ELEVATED AND WATCHING TV. PATIENT CBG CHECKED AND WAS 199. VITAL SIGNS TAKEN AND ARE STABLE. PATIENT REQUESTING PAIN MEDICATION FOR 8/10 HIP PAIN. PATIENT ALSO REQUESTING MELATONIN WITH NIGHT TIME MEDICATIONS. PATIENT WITHOUT FURTHER NEEDS AT THIS TIME. CALL LIGHT AND PERSONAL BELONGINGS ARE WITHIN REACH.
[2025-06-21] MEDS ORDERED: INSULIN GLARGINE-YFGN 100 UNIT/ML ML SUB-Q SCH (21:00)
--- NOTE | 2025-06-21 21:20 | NUR ---
PATIENT MEDICATED PER EMAR. PATIENT RESTING IN BED WITH HOB ELEVATED AND IS WATCHING TV WITH HER SON AT BEDSIDE. PATIENT ASSESSMENT COMPLETED. PATIENT IV AND PICC LINE FLUSHED WITH SALINE. ABX INFUSING PER ORDER IN PICC LINE TO LEFT UPPER ARM. FRESH ICE WATER PROVIDED. PATIENT IS WITHOUT FURTHER NEEDS AT THIS TIME. CALL LIGHT AND PERSONAL BELONGINGS ARE WITHIN REACH.
--- NOTE | 2025-06-21 23:40 | NUR ---
PATIENT IV ABX COMPLETED. MIDLINE FLUSHED WITH 20ML OF NS AND IS SALINE LOCKED. PATIENT HAD 1 LARGE SOFT BM. INTAKE AND OUTPUT CHARTED. PATIENT WITHOUT FURTHER NEEDS AT THIS TIME. CALL LIGHT AND PERSONAL BELONGINGS ARE WITHIN REACH.
[2025-06-22] VITALS (8 sets, daily range): BP systolic 114–136; BP diastolic 49–64
--- NOTE | 2025-06-22 01:30 | NUR ---
PATIENT RESTING IN BED ON HER LEFT SIDE. EVEN AND UNLABORED RESPIRATIONS NOTED. CALL LIGHT AND PERSONAL BELONGINGS ARE WITHIN REACH. PATIENT'S SON IN ROOM ON COUCH.
--- NOTE | 2025-06-22 03:51 | NUR ---
PATIENT RESTING IN BED ON HER LEFT SIDE WITH HER EYES CLOSED. EVEN AND UNLABORED RESPIRATIONS NOTED. CALL LIGHT AND PERSONAL BELONGINGS ARE WITHIN REACH.
[2025-06-22 05:50] LABS: BASOPHILS 0.5 % (0.1-1.2); EOSINOPHILS 2.2 % (0.7-5.8); LYMPHOCYTES 17.4 % (19.3-51.7); MCH 28.1 PG (25.6-32.2); MCHC 32.1 g/dL (32.2-35.5); MCV 87.6 fL (79.4-94.8); MONOCYTES 8.0 % (4.7-12.5); NEUTROPHILS 71.2 % (34.0-71.1); RBC 3.70 M/uL (3.93-5.22)
--- NOTE | 2025-06-22 05:50 | NUR ---
MORNING LABS DRAWN FROM PATIENT MIDLINE. LINE FLUSHED WITH 20ML OF NS, 20ML WASTED, 10ML DRAWN FOR LABS. LINE FLUSHED WITH 10ML OF NS, IV ABX INFUSING PER ORDER. VITAL SIGNS TAKEN AND ARE DOCUTMENTED. INTAKE AND OUTPUT DOCUMENTED. PATIENT IS WITHOUT FURTHER NEEDS AT THIS TIME. CALL LIGHT AND PERSONAL BELONGINGS ARE WITHIN REACH.
[2025-06-22 06:05] LABS: ALT (SGPT) 84.0 U/L (14-59); AST (SGOT) 20.0 U/L (15-37); GLOMERULAR FILTRATION RATE,EST 50.0 mL/min (>60); PROTEIN, TOTAL 7.4 g/dL (6.4-8.2); UREA NITROGEN 27.0 mg/dL (7-18)
--- NOTE | 2025-06-22 07:06 | NUR ---
VERBAL REPORT RECIVED BYGILMAR RN. PATIENT RESTING IN BED EYES CLOSED, BREATHING EVEN AND UNLABORED. CALL LIGHT IN REACH, NO REQUESTS AT THIS TIME.
--- NOTE | 2025-06-22 07:58 | NUR ---
IN TO DO MORNING BLOOD SUGAR, DONE AND CHARTED. PATIENT UP TO BATHROOM THEN TO CHAIR, SBA. VISITOR IN ROOM. WHITE BOARD UPDATED. CALL LIGHT IN REACH. NO FURTHER NEEDS AT THIS TIME.
--- NOTE | 2025-06-22 08:00 | NUR ---
IN TO DO MORNING BLOOD SUGAR, DONE AND CHARTED. PATIENT IN BED RESTING AT THIS TIME. WHITE BOARD UPDATED. CALL LIGHT IN REACH. NO FURTHER NEEDS AT THIS TIME.
--- NOTE | 2025-06-22 08:42 | NUR ---
MORNING ASSESSMENT COMPLETED. PATIENT HAS FREQUENT URINATION BUT DENIES ANY PAIN WITH URINATION. PATIENT SITTING UP IN RECLINER WATCING TV, DENIES ANY NEEDS AT THIS TIME. CALL LIGHT IN REACH.
--- NOTE | 2025-06-22 10:22 | NUR ---
PATIENT UP TO BATHROOM AND BACK TO BED, SBA. I&O'S CHARTED. AM CARE AND ORAL CARE DONE AT SINK. CALL LIGHT IN REACH. NO FURTHER NEEDS AT THIS TIME.
--- NOTE | 2025-06-22 11:52 | NUR ---
PATIENT RESING IN BED EYES CLOSED, BREATHING EVEN AND UNLABORED. CALL LIGHT IN REACH, VISITOR AT BEDSIDE. NO NEEDS AT THIS TIME.
--- NOTE | 2025-06-22 12:56 | NUR ---
IN ROOM WITH PATIENT. PATIENT SITTING UP IN RECLINER WITH VISITOR IN THE ROOM. NO NEEDS AT THIS TIME. CALL LIGHT IN REACH.
--- NOTE | 2025-06-22 14:04 | NUR ---
PATIENT SITTING UP IN CHAIR AT THIS TIME. VITALS AND I&O'S DONE AND CHARTED. CALL LIGHT IN REACH. NO FURTHER NEEDS AT THIS TIME.
--- NOTE | 2025-06-22 14:30 | NUR ---
IN ROOM WITH PATIENT. ANTIBIOTICS INFUSING. PATIENT IN RECLINER, PATIENT AT BEDSIDE. NO NEEDS AT THIS TIME. CALL LIGHT IN REACH.
--- NOTE | 2025-06-22 17:01 | NUR ---
PATIENT UP IN BED EATING DINNER. NO NEEDS AT THIS TIME. CALL LIGHT IN REACH.
--- NOTE | 2025-06-22 17:34 | NUR ---
PATIENT UP IN BED WATCHING TV. PATIENT STATES "STILL HAVING PAIN WITH URINATION, BUT STILL THE SAME LAST TIME." DISCUSSED WITH PATIENT TO LET RN KNOW IF IT GETS WORSE. PATIENT HAS NO NEEDS AT THIS TIME. CALL LIGHT IN REACH.
--- NOTE | 2025-06-22 18:12 | NUR ---
PATIENT IN BED RESTING AT THIS TIME. VITALS AND I&O'S DONE AND CHARTED. CALL LIGHT IN REACH. NO FURTHER NEEDS AT THIS TIME.
--- NOTE | 2025-06-22 19:40 | NUR ---
REPORT RECEIVED FROM MELVI RN AND SOCORRO VIERA. PT RESTING IN BED. RESPIRATIONS EVEN AND UNLABORED. DENIES NEEDS AT THE MOMENT.CALL LIGHT IN REACH.
[2025-06-22] MEDS ORDERED: INSULIN GLARGINE-YFGN 100 UNIT/ML ML SUB-Q SCH (21:00)
--- NOTE | 2025-06-22 22:26 | NUR ---
PT LAYING IN BED. RESPIRATIONS EVEN AND UNLABORED. C/O OF 04/03 LOWER BACK PAIN. PRN PAIN MEDICATION GIVEN ORDERED. DUE MEDICATIONS GIVEN. DENIES FURTHER NEEDS. CALL LIGHT IN REACH.
--- NOTE | 2025-06-22 23:53 | NUR ---
PT LAYING IN BED, AMBULATED TO THE BATHROOM SBA, TOLERATED WELL. PT STILL REPORTS BURNING WITH URINATION. DENIES FURTHER NEEDS. CALL LIGHT IN REACH.
[2025-06-23] VITALS (7 sets, daily range): BP systolic 95–139; BP diastolic 46–72
--- NOTE | 2025-06-23 01:56 | NUR ---
PT LAYING IN BED. RESPIRATIONS EVEN AND UNLABORED. NO NEEDS NOTED AT THIS TIME. CALL LIGHT IN REACH.
--- NOTE | 2025-06-23 03:44 | NUR ---
PT RESTING IN BED. RESPIRATIONS EVEN AND UNLABORED. NO APPARENT NEEDS NOTED AT THIS TIME. PERSONAL BELONGINGS AND CALL LIGHT IN REACH.
--- NOTE | 2025-06-23 06:17 | NUR ---
PT LAYING IN BED WATCHING TV. NO COMPLAINT OF PAIN. INTAKE OUTPUT RECORDED. DUE IV ANTIBIOTIC GIVEN ORDERED. DENIES FURTHER NEEDS. CALL LIGHT AND PERSONAL BELONGINGS WITHIN REACH.
--- NOTE | 2025-06-23 06:35 | NUR ---
pt RESTING IN BED WITH EYES CLOSED, AWAKENS TO VOICE. LABS DRAWN FROM MIDLINE PER POLICY. ANTIBIOTIC NOW INFUSING. pt DENIES ADDITIONAL NEEDS. CALL LIGHT IN REACH.
[2025-06-23 06:49] LABS: GLOMERULAR FILTRATION RATE,EST 59.0 mL/min (>60); UREA NITROGEN 26.0 mg/dL (7-18)
--- NOTE | 2025-06-23 07:17 | NUR ---
VERBAL REPORT RECIVED BY SOCORRO HUTCHINSON, PATIENT UP IN BATHROOM LIBORIO JAY IN THE ROOM WITH PATIENT.
[2025-06-23] MEDS ORDERED: FUROSEMIDE 40 MG TAB PO SCH (09:00)
--- NOTE | 2025-06-23 09:54 | NUR ---
MORNING ASSESSMENT COMPLETE. PATIENT COMPLAINS OF NUMBNESS TOWARDS COCCYX, THIS RN AND SOCORRO WORKMAN CONFIRMED THAT SKIN IS BLANACHABLE AT COCCYX. WAFFLE OVERLAY ON RECLIENR PLACED, PATIENT STATES "THIS ALREADY FEELS BETTER." PATIENT STILL IS HAVING BURNING AND FREQUENT URINATION BUT STILL FEELS THE SAME LAST TIME. DISCUSSED WITH PATIENT TO LET THE RN KNOW IF ANY CHANGES WITH URINATION OCCUR OR GET WORSE. FRESH ICE WATER PROVIDED. NO FURTHER NEEDS AT THIS TIME. CALL [facility] IN REACH.
--- NOTE | 2025-06-23 11:02 | NUR ---
PATIENT LAYING IN BED, WATCHING TV. WARM TEA PROVIDED PER PATIENT REQUEST. CALL LIGHT IN REACH. NO FURTHER NEEDS AT THIS TIME.
--- NOTE | 2025-06-23 11:53 | NUR ---
INTO SEE PATIENT. PATIENT AGREED TO OUTPATIENT THERAPY. IMM LETTER COMPLETED.
--- NOTE | 2025-06-23 12:36 | NUR ---
PATIENT UP IN RECLINER EATING LUNCH, WATCHING TV. CALL LIGHT IN REACH. NO NEEDS AT THIS TIME.
--- NOTE | 2025-06-23 14:43 | NUR ---
PATIENT IN BED AWAKE, WATCHING TV. ANTIBIOTIC INFUSING AT THIS TIME. PATIENT IS STILL HAVING FREQUENT URINATION AND BRUNING. DISCUSSED WITH PATIENT THAT WE WILL SPEAK WITH DR. JOHN NO REQUESTS AT THIS TIME. CALL LIGHT IN REACH.
--- NOTE | 2025-06-23 16:41 | NUR ---
PATIENT SITTING UP IN BED WATCHING TV. ANTIBIOTICS INFUSING AT THIS TIME. CALL LIGHT IN REACH. NO NEEDS AT THIS TIME.
--- NOTE | 2025-06-23 17:35 | NUR ---
Updated by Dr. Sánchez pt will need 9 more days of antibiotics. Went to pts room with Options given for pt to dc and return for OP antibiotics daily or stay and admit to the [facility] program tomorrow. Pt chose to stay in the hospital as her antibiotics infuse over 2 hours and she would need to return 3 x per day.
--- NOTE | 2025-06-23 17:50 | NUR ---
PT AWAKE IN RECLINER, DENIES NEEDS. DISCUSSING POC. DINNER SET UP. CALL LIGHT IN REACH.
--- NOTE | 2025-06-23 18:07 | NUR ---
PATIENT SITTING UP EATING DINNER, SODA PROVIDED AND TV TURNED ON PER PATIENT REQUEST. NO FURTHER NEEDS AT THIS TIME. CALL LIGHT IN REACH.
--- NOTE | 2025-06-23 18:12 | NUR ---
Request for PASRR completion sent to the [place] [facility] site.
--- NOTE | 2025-06-23 20:47 | NUR ---
Pt continues on contact. droplet isolation, Klebsiella PNA + Blood clutures. Alert and orineted. independent. Up to BRP, voided, back to bed, tolerated very weell, Coop with vitals, assessments and CBG. CBG 260 received 7 units SSI plas Glargine 20 units. FRITZ PICC lineSL patent. SL L wrist area patent. On room air, lungs clear bilat, stated had a bm today.
[2025-06-23] MEDS ORDERED: PHENAZOPYRIDINE HCL 100 MG TAB PO SCH (21:00)
--- NOTE | 2025-06-23 22:25 | NUR ---
CONTINUES ON CONTACT DROPLET ISOLATION, USED CALL LIGHT, UP TO BRP, IV ABX INFUSING W/O PROBLEMS. REPOSITIONS SELF IN BED
[2025-06-24] VITALS (9 sets, daily range): BP systolic 111–1274; BP diastolic 49–95
--- NOTE | 2025-06-24 01:05 | NUR ---
Resting, eys closed, no c/o pain, midline GIOVANY patent., repositions self in bed
--- NOTE | 2025-06-24 04:26 | NUR ---
RESTING, EYES CLOSED, INDEPENDENT IN ROOM. CONTINUES ON CONTACTDROPLET ISOLATION
[2025-06-24 05:45] LABS: BASOPHILS 0.5 % (0.1-1.2); EOSINOPHILS 2.8 % (0.7-5.8); LYMPHOCYTES 18.3 % (19.3-51.7); MCH 27.9 PG (25.6-32.2); MCHC 31.7 g/dL (32.2-35.5); MCV 88.3 fL (79.4-94.8); MONOCYTES 10.4 % (4.7-12.5); NEUTROPHILS 67.6 % (34.0-71.1); RBC 3.83 M/uL (3.93-5.22)
[2025-06-24 05:54] LABS: GLOMERULAR FILTRATION RATE,EST 50.0 mL/min (>60); UREA NITROGEN 26.0 mg/dL (7-18)
--- NOTE | 2025-06-24 06:08 | NUR ---
Up to BRP, voided, back to bed, tolerated well, no c/o pain. daily standing weight 82.2 KG. cooperative with second assessment, vitals and lab draws.
--- NOTE | 2025-06-24 07:14 | NUR ---
VERBAL REPORT RECIVED BY SOCORRO VILLA. PATIENT RESTING IN BED EYES CLOSED, BREATHING EVEN AND UNLABORED. NO NEEDS AT THIS TIME. CALL LIGHT IN REACH.
--- NOTE | 2025-06-24 07:55 | NUR ---
IN TO DO MORNING ROUNDS AND BLOOD SUGAR. PATIENT UP TO BATHROOM THEN TO SITTING UP ON EDGE OF BED, SBA. CALL LIGHT IN REACH. NO FURTHER NEEDS AT THIS TIME.
[2025-06-24] MEDS ORDERED: CLOPIDOGREL BISULFATE 75 MG TAB PO SCH (09:00)
[2025-06-24] MEDS ORDERED: LACTOBACILLUS RHAMNOSUS GG 1 EACH CAP PO SCH (09:00)
[2025-06-24] MEDS ORDERED: ATORVASTATIN 40 MG TAB PO SCH (09:00)
[2025-06-24] MEDS ORDERED: ASPIRIN 81 MG TABEC PO SCH (09:00)
--- NOTE | 2025-06-24 09:18 | NUR ---
MORNING ASSESSMENT COMPLETE. PATIENT STATES "IT STILL STINGS WHEN I URINATE", TOLERABLE. PATIENT INDEPENDENT IN ROOM, ORINETED TO CALL LIGHT IF ASSISTANCE IS NEEDED. WAFFLE OVERLAY PLACED ON BED. PATIENT SITTING IN RECLINER, WATCHING TV. NO FURTHER NEEDS AT THIS TIME. CALL LIGHT IN REACH.
--- NOTE | 2025-06-24 10:28 | NUR ---
PATIENT UP IN RECLINER, FAMILY IN THE ROOM. PATIENT COMPLAINS OF BURNING SENSATION WHEN WIPING IN THE DAI REGION, WILL TALK TO DR ADDISON. PATIENT WATCHING TV, CALL LIGHT IN REACH.
--- NOTE | 2025-06-24 10:40 | NUR ---
SPOKE WITH ADDISON SUGGESTING VAGINAL CREAM. PHARMACY CALLED, VERBAL ORDER PLACE.
[2025-06-24] MEDS ORDERED: MICONAZOLE 2% PV SCH (10:45)
--- NOTE | 2025-06-24 11:17 | NUR ---
ALERT AND ORIENTED IN BED, WEARING STREET CLOTHES. PATIENT STATES THE DOCTOR TOLD HER SHE COULD POTENTIALLY DC TO HOME TOMORROW. INFORMED HER TOMORROW OR MONDAY. SHE DOES HAVE CYSTOSCOPY SCHEDULED FOR MONDAY WITH DR. WOOD. STATES SHE IS READY TO GO HOME. NO CM NEEDS AT THIS TIME.
--- NOTE | 2025-06-24 11:50 | NUR ---
IN TO DO BLOOD SUGAR. PATIENT SITTING UP IN BED AT THIS TIME. BLOOD SUGAR DONE AND CHARTED, RN NOTIFIED. CALL LIGHT IN REACH. NO FURTHER NEEDS AT THIS TIME.
--- NOTE | 2025-06-24 13:54 | NUR ---
IN ROOM WITH PATIENT. FOCUSED ASSESSMENT COMPLETE. PATIENT MENTIONS STILL PAINFUL WHEN URINATING. PATIENT PROVIDED VAGINAL CREAM, EDUCATED HOW FREQUENT TO USE, PLACED IN PATIENT BATHROOM. PT/OT IN THE ROOM TO WORK WITH PATIENT.
--- NOTE | 2025-06-24 15:59 | NUR ---
PATIENT RESTING IN BED AWAKE WATCHING TV. PATIENT PROVIDED TEA PER REQUEST. NO FURTHER NEEDS AT THIS TIME. CALL LIGHT IN REACH.
--- NOTE | 2025-06-24 17:18 | NUR ---
PATIENT SITTING IN THE RECLINER EATING DINNER, WATCHING TV. FRESH WATER PROVIDED PER PATIENT REQUEST. NO FURTHER NEEDS AT THIS TIME.
--- NOTE | 2025-06-24 17:52 | NUR ---
PATIENT SITTING UP IN BED WATCHING TV. VITALS AND I&O'S DONE AND CHARTED. CALL LIGHT IN REACH. NO FURTHER NEEDS AT THIS TIME.
--- NOTE | 2025-06-24 18:49 | NUR ---
PATIENT RESTING EYES CLOSED, BREATHING EVEN AND UNLABORED. NO NEEDS AT THIS TIME, TV ON AND CALL LIGHT IN REACH.
--- NOTE | 2025-06-24 19:22 | NUR ---
Resting, eyes closed, no s/sx distress. laying L side, room air, no longer on contact/droplet isolation.
--- NOTE | 2025-06-24 20:44 | NUR ---
Pt awake, alert and oriented, Independent in room. On room air, lungs clear bilat, no c/o sob with exertion. Up to BRP, voided orange colored urine - pt on Pyridium tabs, had a large soft bm. Does own care. Back to bed. no c/o pain. SL L Wrsit area and FRITZ midline SL . applying her own Monistat vaginal cream, no c/o vaginal burning at thist william. using Desenex powder under breast area. Does own care. Tolerating liquids well, no n/v.
[2025-06-25] VITALS (9 sets, daily range): BP systolic 107–131; BP diastolic 48–65
--- NOTE | 2025-06-25 02:10 | NUR ---
PT IN BED TURNS AND REPOSTIONS SELF IN BED, NO C/O PAIN, INDEPENDENT IN ROOM
--- NOTE | 2025-06-25 06:39 | NUR ---
awake, no c/o pain, on room air. SL L wrist patent, midline GIOVANY. abx infusing w/o problems. Up to BRP, voidding orange colored urine. standing daily weight 81.8KG. Repositions self in bed.
--- NOTE | 2025-06-25 07:05 | NUR ---
awake, calmer, alert to slef, place and where he lives, year, stated month was april.
--- NOTE | 2025-06-25 07:59 | NUR ---
RECEIVED REPORT FROM NIGHT RN - ALLEN. PT SITTING UP IN BED AT THIS TIME, BALL RACKER GETTING BLOOD SUGAR. IV ABX INFUSING. PT DENIES ANY NEEDS AT THIS TIME, JUST INQUIRING ABOUT BREAKFAST. CALL LIGHT WITHIN REACH. ALL PT CARE NEEDS MET. WILL RETURN LATER PATIENT DENIES ANY NEEDS.
--- NOTE | 2025-06-25 09:12 | NUR ---
ALERT AND ORIENTED IN RECLINER. STATES SHE WANTS TO GO HOME. STATES SHE CONTINUES TO HAVE NO CM NEEDS. LIKELY DC TO HOME TOMORROW.
--- NOTE | 2025-06-25 10:54 | NUR ---
VISITED DURING SPIRITUAL CARE ROUNDS. PT APPEARED TO BE SLEEPING. DID NOT DISTURB. PROVIDED PRAYER.
--- NOTE | 2025-06-25 14:53 | NUR ---
RECIEVED HAND OFF REPORT. PT IS AWAKE IN BED, USED RESTROOM BEFORE ABX INFUSING. NO NEEDS AT THIS TIME. CALL LIGHT IN REACH
--- NOTE | 2025-06-25 17:14 | NUR ---
PT IS SITTING IN THE BED, EAT DINNER. CALL LIGHT IN REACH.
--- NOTE | 2025-06-25 18:22 | NUR ---
PT IS AWAKE IN BED, NO NEEDS. CALL LIGHT IN REACH
--- NOTE | 2025-06-25 18:41 | NUR ---
PATIENT WAS OFFERED A SHOWER THROUGHOUT THE DAY AND DECLINED, STATING SHE WOULD RATHER TAKE ONE TOMORROW.
--- NOTE | 2025-06-25 19:10 | NUR ---
REVIEVED REPORT FROM SOCORRO DIAZ. PT LAYING IN BED, ALERT WITH EYES OPEN, TV ON. BEDSIDE TABLE AND BELONGINGS IN REACH, REQUESTED WATER REFILL, PT DENIES ANY OTHER NEEDS. CALL LIGHT IN REACH.
--- NOTE | 2025-06-25 20:39 | NUR ---
PATIENT IS LAYING IN BED. VITAL SIGNS AND I&OS WERE DONE. PATIENTS CALL LIGHT IS WITHIN REACH AND NO FURTHER NEEDS AT THIS TIME.
--- NOTE | 2025-06-25 22:26 | NUR ---
THIS RN IN ROOM TO ADMINISTER EVENING MEDICATIONS, APICAL HR 54, BP 131/56 MAP 74. NO HOLD PARAMETERS W/ ORDERED CONTROLLED-RELEASE METOPROLOL. DR ADDISON CALLEDMD UPDATED ON VS. NEW TELEPHONE ORDER READ BACK TO DC THE 100MG CR METOPROLOL AND CUT DOSE IN HALF TO METOPROLOL CR 50MG PO BID-TO START TONIGHT.
[2025-06-25] MEDS ORDERED: METOPROLOL SUCCINATE 50 MG TABCR PO SCH (22:45)
[2025-06-26] VITALS (7 sets, daily range): BP systolic 99–146; BP diastolic 51–77
--- NOTE | 2025-06-26 04:09 | NUR ---
ROUNDED ON PATIENT. PATIENT IN BED RESTING ON LEFT SIDE WITH EYES CLOSED. RESPIRATIONS EVEN AND UNLABORED. NO NEEDS IDENTIFIED AT THIS TIME. CALL LIGHT IN REACH.
--- NOTE | 2025-06-26 06:11 | NUR ---
UPON ASSESSMENT PATIENTS URINE WAS YELLOW AND CLOUDY. PATIENT STATED LESS FREQUENCY, BURNING AND LESSENED FLANK PAIN. PATIENT RESTING IN BED, CALL LIGHT IN REACH. DENIES ANY NEEDS AT THIS TIME.
[2025-06-26] MEDS ORDERED: LIDOCAINE 2% VISCOUS 11 ML SYR ONE (07:04)
--- NOTE | 2025-06-26 08:00 | NUR ---
INTO SEE PATIENT. PATIENT TO HAVE CYSTO TODAY AND THEN POTENTIALLY DISCHARGE. PATIENT TO GO HOME WITH HER GRANDDAUGHTERS WHEN MEDICALLY CLEARED. STILL AGREEABLE TO OUTPATIENT THERAPY. IMM LETTER REVIEWED. NO FUTHER CM NEEDS.
--- NOTE | 2025-06-26 08:01 | NUR ---
PT BACK FROM [facility], AMBULATING W/O PROBLEMS. TACHYCHARDIC AT THIST JOSE EDUARDO. WILL RECHECK P AFTER RETURNING TO BED AND RESTING. NO C/O CP . MAHOGANY SUAREZ AND FRITZ ARIZA. CBG 272, RECEIVED 7 UNITS SS INSULIN.
--- NOTE | 2025-06-26 09:31 | NUR ---
PATIENT IN BED AT THIS TIME. WEARING APPAREL SHAKER CHARTED VITALS AND I&O'S. CALL LIGHT WITHIN REACH, NO FURTHER NEEDS.
[2025-06-26] MEDS ORDERED: GLIPIZIDE XL10 MG PO (10:28)
--- NOTE | 2025-06-26 10:37 | NUR ---
OUTPATIENT THERAPY FAXED.
--- NOTE | 2025-06-26 11:45 | NUR ---
Dr Barajas in room doing Cystoscopy, will medicated pt per bladder/procedure pain
--- NOTE | 2025-06-26 12:27 | NUR ---
eating, sittiing up in bed. no requests, calmer.
--- NOTE | 2025-06-26 13:08 | NUR ---
DC INSTRUCTIONS GIVEN ORALLY AND VERBALLY, REPEAT INSTRUCTIONS AND REPEAT BACK DONE. PT AWARE OF DR LINDO AND DR WOOD APPOINTMENT. SITTING UP IN BED
--- NOTE | 2025-06-26 13:30 | NUR ---
GIOVANY MIDLINE AND L WRIST AREA IV SITED DC'D. PROCEDURE EXPLAINED, COOPERATIVE.
--- NOTE | 2025-06-26 13:33 | NUR ---
PT DC HOME VIA W/C WITH ALL BELONGINGS AND WRITTEN DC INSTRUCTIONS ACOMPANIED BY GRANDDAUGHTER TO PRIVATE CAR, NO C/O PAIN ON DC
== END 2025-06-26 13:33 | disposition home or self-care (01) | DRG 871 ==
LOC: ED 20:15 → CCU 23:29 → MS 06-20 22:18
PROVIDERS: Family Medicine; Student in an Organized Health Care Education/Training Program; ADMIT Internal Medicine; ATTEND Internal Medicine
PROC: 3E03329 Introduction of Other Anti-infective into Peripheral Vein, Percutaneous Approach (ICD-10-PCS; principal; 2025-06-13)
PROC: 3E033XZ Introduction of Vasopressor into Peripheral Vein, Percutaneous Approach (ICD-10-PCS; 2025-06-13)
PROC: 30233N1 Transfusion of Nonautologous Red Blood Cells into Peripheral Vein, Percutaneous Approach (ICD-10-PCS; 2025-06-13)
PROC: 0TJB8ZZ Inspection of Bladder, Via Natural or Artificial Opening Endoscopic (ICD-10-PCS; 2025-06-26)
DX: A41.59 Other Gram-negative sepsis (principal); R65.21 Severe sepsis with septic shock; E87.1 Hypo-osmolality and hyponatremia; D62 Acute posthemorrhagic anemia; I48.92 Unspecified atrial flutter; Z16.24 Resistance to multiple antibiotics; J81.1 Chronic pulmonary edema; J90 Pleural effusion, not elsewhere classified; N20.0 Calculus of kidney; E03.9 Hypothyroidism, unspecified; E78.00 Pure hypercholesterolemia, unspecified; J45.909 Unspecified asthma, uncomplicated; F32.A Depression, unspecified; M19.90 Unspecified osteoarthritis, unspecified site; N30.81 Other cystitis with hematuria; I25.2 Old myocardial infarction; I25.10 Atherosclerotic heart disease of native coronary artery without angina pectoris; N18.9 Chronic kidney disease, unspecified; E66.9 Obesity, unspecified; Z68.33 Body mass index [BMI] 33.0-33.9, adult; D69.6 Thrombocytopenia, unspecified; I12.9 Hypertensive chronic kidney disease with stage 1 through stage 4 chronic kidney disease, or unspecified chronic kidney disease; E11.22 Type 2 diabetes mellitus with diabetic chronic kidney disease; M54.2 Cervicalgia; D63.1 Anemia in chronic kidney disease; I48.91 Unspecified atrial fibrillation; E83.42 Hypomagnesemia; E87.6 Hypokalemia; E11.65 Type 2 diabetes mellitus with hyperglycemia; Z90.49 Acquired absence of other specified parts of digestive tract; Z98.890 Other specified postprocedural states; Z95.5 Presence of coronary angioplasty implant and graft; Z85.41 Personal history of malignant neoplasm of cervix uteri; Z79.4 Long term (current) use of insulin; Z79.01 Long term (current) use of anticoagulants; Z79.84 Long term (current) use of oral hypoglycemic drugs; Z79.899 Other long term (current) drug therapy; Z79.890 Hormone replacement therapy
CPT/HCPCS: 36415; 36430; 36569; 36592; 51798; 71045; 71260; 74176; 74177; 80048; 80053; 80202; 81001; 83036; 83605; 83735; 84100; 85025; 85060; 85610; 86850; 86900; 86901; 86922; 87040; 87077; 87088; 87186; 87502; 93005; 93010; 93306; 94640; 94667; 94668; 94762; 94799; 96365; 97116; 97161; 97165; 97530; 97535; 99285-25; A9270; C1747; C1751; J0153; J0692; J0696; J0714; J1815; J1938; J2185; J2270; J3260; J3373; J3475; J3480; J3490; J7030; J7050; J7060; J7121; P9016; Q9967; U0002